=== PATIENT | female | born 1995 | race Caucasian/White ===

== ENCOUNTER 2022-04-09 06:56 | Observation (INO) ==
[2022-04-09] MEDS ORDERED: MoRPHine SULFATE 2 MG/ML CARP IV STA ×2 (07:53→10:56)
[2022-04-09] MEDS ORDERED: ACETAMINOPHEN 1,000 MG/100 ML VIAL IV STA (07:53)
[2022-04-09] MEDS: SODIUM CHLORIDE 0.9% 1000ML 1,000 ML IV SCH ×2 (08:00→16:37)
[2022-04-09] MEDS ORDERED: IOVERSOL 350 MG 100mL Prefilled Syringe IV ONE (08:35)
--- NOTE | 2022-04-09 09:11 | CT Scan Report ---
CT OF THE ABDOMEN AND PELVIS WITH CONTRAST CLINICAL HISTORY: Right-sided abdominal pain. COMPARISON STUDY: Right upper quadrant ultrasound performed earlier today. TECHNIQUE: Following IV administration of Optiray, axial images of the abdomen and pelvis were obtain ed from the lung bases to the proximal femurs. Images were reviewed in the axial, sagittal, and coron al planes. IV contrast was administered without complication. Automated exposure control was utilize d for the study. A dose lowering technique was utilized adhering to the principles of ALARA. CT DOSE: 1674.80 mGy.cm FINDINGS: Lung bases are unremarkable. No pneumatosis, free air or portal venous gas is present. Intr auterine gestation is noted with cephalic presentation. The liver, spleen, adrenal glands, left kidne y and pancreas are unremarkable. The possible hepatic abnormality on ultrasound was likely artifactua l. There is mild to moderate right hydronephrosis with delayed right nephrogram. No ureteral calculi are present. The hydronephrosis is likely due to mass effect upon the distal ureter by the gravid michael yoanna. There is no perinephric stranding. There is no evidence for a bowel obstruction. The appendix is normal. There is a 4.8 cm fat-containing left adnexal lesion. There is a 2.9 cm fat-containing right adnexal lesion. There are associated calcifications. These represent bilateral ovarian dermoid cysts . Major vasculature is patent. There is no free fluid. There is no lymphadenopathy. IMPRESSION: 1. Mild to moderate right hydronephrosis with delayed nephrogram. No ureteral calculi. This hydroneph rosis is likely due to mass effect upon the distal right ureter by the gravid uterus. 2. Normal appendix. No bowel obstruction. No bowel wall thickening. 3. Fat-containing bilateral ovarian lesions consistent with bilateral ovarian dermoid cysts. ACT 112: Negative or not required by law. Electronically signed by: Cody Evans M.D. 04/09/2022 9:10 AM
--- NOTE | 2022-04-09 10:11 | XRay Report ---
XR chest 1V portable HISTORY: . Generalized abdominal pain. Difficulty breathing. COMPARISON: None. FINDINGS: The lungs are clear. Cardiac silhouette is normal in size. No pleural effusions. No pneumot horax. IMPRESSION: No acute process. ACT 112: Negative or not required by law. Electronically signed by: Hector Espinoza M.D. 04/09/2022 10:09 AM
--- NOTE | 2022-04-09 10:46 | Emergency Department Note ---
History of Present Illness General Chief complaint: Abdominal Pain Stated complaint: ABD PAIN,32 WEEKS PREG,ALREADY SEEN IN LD Time Seen by Provider: 04/09/22 07:26 Source: patient Mode of arrival: ambulatory Limitations: no limitations History of Present Illness Provider complaint: abd pain, Maximum Pain Intensity: 4 This is a 26 yo female at 32 weeks who present with right sided abdominal pain after being evaluated upstairs in L&D. They did check labs/urine and perform abd US in addition to obstetrics evaluation. No evidence of acute obstetrical problem per Dr. Hughes. I reviewed evaluation with patient at bedside who c/o persistent pain. She denied change in urine/stool, denied fever. Stated pain woke her abruptly and is nonradiating. No prior similar episodes. No prior abdominal surgery. No complications during the so far. Pain is worse laying down. No new medications. No change in activity or trauma. Home Medications Medication Instructions Recorded Confirmed Type albuterol sulfate 90 mcg/actuation 2 puff inhalation Q6H PRN 07/01/21 04/10/22 History aerosol inhaler Shortness Of Breath Or Wheezing buspirone 5 mg tablet 10 mg PO BID 07/01/21 04/10/22 History diphenhydramine HCl 25 mg capsule 25 mg PO DIRECTED PRN ALLERGIES 07/01/21 04/10/22 History (Benadryl) duloxetine 30 mg capsule,delayed 30 mg PO DAILY 07/01/21 04/10/22 History release fexofenadine 180 mg tablet 180 mg PO DAILY PRN Congestion 10/16/21 04/10/22 History (Tamela Allergy) prenat.vits,jenise,soo-nvqq-ecgwv 1 tab PO DAILY 10/16/21 04/10/22 History magnesium oxide 500 mg tablet 500 mg PO DAILY 04/09/22 04/10/22 History Allergies Allergy/AdvReac Type Severity Reaction Status Date / Time ragweed pollen Allergy Unknown POSITIVE Verified 04/10/22 15:17 ALLERGY TEST gluten Allergy CELIAC Verified 04/10/22 15:17 DISEASE Egg Derived AdvReac Intermediate UPSET Verified 04/10/22 15:17 STOMACH Past Med/Surg History Medical History Anxiety Asthma Celiac disease Concussion COVID-19 Cyst of ovary, left Depression Fibromyalgia H pylori ulcer Surgical History History of esophagogastroduodenoscopy (EGD) 07/05/17; 01/24/20 Family History Father Hypertension Eczema Autoimmune hepatitis Arthritis Mother Hypertension Unknown Breast cancer Denies family history of Ovarian cancer Lung cancer Colorectal cancer Social History Smoking Status: Never smoker Second Hand Exposure: No; Hx Alcohol Use: No Hx Substance Use: No Preferred Language: Upper Sorbian Communication Ability: Effective Gaming Associate Required: No Beliefs That Will Affect Care: None marital status: Single marital status details: Engaged to Cody Garcia ([phone] Current Living Situation: Significant Other Current Living Situation Comment: FOB and cats (fob changing litter) current occupational status: employed current occupation: [employer] Feels Safe at Home: Yes Assistive Devices: None Review of Systems A total of 10 systems reviewed and were otherwise negative All systems reviewed & are unremarkable except as noted in HPI & below Physical Exam Vital Signs Vital Signs - 24 hr 04/09/22 07:01 04/09/22 07:20 04/09/22 08:00 Temperature 36.4 C L 37.3 C Temperature Source Temporal Artery Scan Oral Pulse Rate 142 H Pulse Rate [Finger] 120 H 122 H Pulse Rhythm [Finger] Regular Regular Pulse Strength [Finger] Normal Normal Respiratory Rate 20 22 22 Respiratory Effort / Characteristics Non-Labored Non-Labored Respiratory Depth Normal Normal Normal Respiratory Pattern Regular Blood Pressure 110/67 Blood Pressure [Left Arm] 131/98 129/85 Blood Pressure Mean 81 Blood Pressure Mean [Left Arm] 109 99 Blood Pressure Position [Left Arm] Lying Lying Pulse Oximetry 96 96 97 Oxygen Delivery Method Room Air Room Air Room Air Sepsis Recent Fever Within 48 Hours No Sepsis New/Unexplained Change in Mental Status N/A Sepsis Action Taken by Nursing No Action Required 04/09/22 10:00 04/09/22 11:00 Temperature Temperature Source Pulse Rate Pulse Rate [Finger] 116 H 105 H Pulse Rhythm [Finger] Pulse Strength [Finger] Normal Normal Respiratory Rate 18 18 Respiratory Effort / Characteristics Non-Labored Non-Labored Respiratory Depth Normal Normal Respiratory Pattern Regular Regular Blood Pressure Blood Pressure [Left Arm] 148/78 H Blood Pressure Mean Blood Pressure Mean [Left Arm] 101 Blood Pressure Position [Left Arm] Lying Pulse Oximetry 96 96 Oxygen Delivery Method Room Air Room Air Sepsis Recent Fever Within 48 Hours Sepsis New/Unexplained Change in Mental Status Sepsis Action Taken by Nursing GENERAL: alert, well appearing, well nourished, no distress, non-toxic EYE EXAM: normal conjunctiva, PERRL and EOM's grossly intact OROPHARYNX: no exudate, no erythema, lips, buccal mucosa, and tongue normal and mucous membranes are moist NECK: supple, no nuchal rigidity, no adenopathy, non-tender LUNGS: Clear to auscultation. Normal chest wall mechanics, no w/r/r HEART: no murmurs, S1 normal and S2 normal ABDOMEN: abdomen soft, tender to palpation right mid lateral abdomen, normo- active bowel sounds, gravid uterus palpable btw umbilicus and xiphoid process, no rebound or guarding. BACK: Back is symmetrical on inspection and there is no deformity, no midline tenderness, no CVA tenderness. SKIN: no rashes and no bruising UPPER EXTREMITIES: upper extremities are grossly normal. FROM, nml pulses b/l. LOWER EXTREMITIES: No pitting edema. FROM, nml pulses b/l. NEURO EXAM: Normal sensorium, cranial nerves II-XII grossly intact, normal speech, no gross weakness of arms, no gross weakness of legs. Gross sensation intact. Course Course 1050: Discussed with Dr. Licea. 1245: Updated Dr. Licea. 1325: Dr. Licea now at bedside. Administered Medications Discontinued Medications Buspirone HCl (Buspirone 5 Mg Tab) 10 mg PO BID [facility] Stop: 05/10/22 08:59 Last Admin: 04/10/22 07:45 Dose: 10 mg Documented By: Admin: 04/09/22 23:37 Dose: 10 mg Documented By: LANE Duloxetine HCl (Duloxetine Hcl 30 Mg Cap) 30 mg PO DAILY MARITA Stop: 05/10/22 08:59 Last Admin: 04/10/22 07:44 Dose: 30 mg Documented By: STERLING Sodium Chloride (Nss 1000ml) 1,000 mls @ 125 mls/hr IV .Q8H [facility] Stop: 05/09/22 07:59 Last Admin: 04/09/22 16:37 Dose: Not Given Documented By: Admin: 04/09/22 08:00 Dose: 125 mls/hr Documented By: TRAVON Acetaminophen (Ofirmev) 1,000 mg in 100 mls @ 400 mls/hr IV NOW STA Stop: 04/09/22 08:07 Last Infusion: 04/09/22 08:12 Dose: 0 mls/hr Documented By: Admin: 04/09/22 07:59 Dose: 400 mls/hr Documented By: TRAVON Lactated Ringer's (Lr) 1,000 mls @ 125 mls/hr IV .Q8H PRN; Protocol PRN Reason: L&D Protocol Stop: 05/09/22 15:54 Last Infusion: 04/10/22 01:30 Dose: 0 mls/hr Documented By: AMPavel Infusion: 04/10/22 00:31 Dose: 125 mls/hr Documented By: Infusion: 04/09/22 21:00 Dose: 0 mls/hr Documented By: AMPavel Admin: 04/09/22 16:43 Dose: 125 mls/hr Documented By: ERIN Acetaminophen 1,000 mg/ EMPTY (BAG) 100 mls @ 400 mls/hr IV Q8H MARITA Stop: 05/09/22 15:59 Last Admin: 04/10/22 07:45 Dose: 400 mls/hr Documented By: Infusion: 04/10/22 00:45 Dose: 400 mls/hr Documented By: Admin: 04/10/22 00:30 Dose: 400 mls/hr Documented By: Infusion: 04/09/22 17:21 Dose: 0 mls/hr Documented By: Admin: 04/09/22 17:06 Dose: 400 mls/hr Documented By: ERIN Ioversol (Ioversol 350 Mg 100ml Prefilled Syringe) 95 ml IV ONCE ONE Stop: 04/09/22 08:36 Last Admin: 04/09/22 08:36 Dose: 95 ml Documented By: EVELYN Morphine Sulfate (Morphine Sulfate 2 Mg/Ml Carp) 2 mg IV NOW STA Stop: 04/09/22 07:54 Last Admin: 04/09/22 08:00 Dose: 2 mg Documented By: TRAVON Morphine Sulfate (Morphine Sulfate 2 Mg/Ml Carp) 2 mg IV NOW STA Stop: 04/09/22 10:57 Last Admin: 04/09/22 11:02 Dose: 2 mg Documented By: [facility] Medical Decision Making Differential Diagnosis Differential diagnoses includes but is not limited to gastritis, peptic ulcer disease, GERD, gallbladder disease, pancreatitis, small bowel obstruction, acute coronary syndrome, pericarditis, ischemic bowel, irritable bowel disease, irritable bowel syndrome, appendicitis, diverticulitis, malignancy, hernia, urinary tract infection, torsion, [/ectopic (if female)], perforation, trauma, infectious. Medical Records Attestation: I reviewed the patient's medical records. Home Medications Current Medication List: was personally reviewed by me Laboratory Data Attestation: I reviewed the patient's lab results. Result diagrams: 04/10/22 05:55 04/10/22 05:55 Lab Results 04/09/22 04/09/22 04/09/22 Range/Units 11:32 11:32 12:30 WBC 15.92 H (4.8-10.8) K/ul RBC 4.16 (3.93-5.22) M/uL Hgb 11.9 L (12.0-16.0) g/dl Hct 34.7 (34.1-44.9) % MCV 83.4 (80.0-100.0) fL MCH 28.6 (25.0-34.0) pg MCHC 34.3 (32.0-36.0) g/dL RDW Std Deviation 37.8 (36.4-46.3) fL RDW Coeff of Roberth 12.5 (11.5-14.5) % Plt Count 261 (130-400) K/uL MPV 9.8 (9.4-12.3) fL Immature Gran % (Auto) 0.4 % Neut % (Auto) 82.1 % Lymph % (Auto) 8.6 % [place] % (Auto) 7.9 % Eos % (Auto) 0.8 % Baso % (Auto) 0.2 % Neut # (Auto) 13.09 H (1.4-6.5) K/uL Lymph # (Auto) 1.37 (1.2-3.4) K/uL [place] # (Auto) 1.25 H (0.24-0.82) K/uL Eos # (Auto) 0.12 (0-0.50) K/uL Baso # (Auto) 0.03 (0-0.2) K/uL Immature Gran # (Auto) 0.06 H (0.00-0.02) K/uL Sodium 135 L (136-145) mmol/L Potassium 3.8 (3.5-5.1) mmol/L Chloride 105 (98-107) mmol/L Carbon Dioxide 23 (21-32) mmol/L Anion Gap 7 (3-11) BUN 4 L (6-23) mg/dl Creatinine 0.57 L (0.6-1.2) mg/dl Est Cr Clr Drug Dosing 189.8 ml/min Est GFR ( Amer) > 150.0 ml/min Est GFR (Non-Af Amer) 129.8 ml/min BUN/Creatinine Ratio 7.0 L (10-20) Glucose 92 (70-99(Fasting)) mg/dl Calcium 8.6 (8.5-10.1) mg/dl Total Bilirubin 0.4 (0.2-1.0) mg/dl AST 11 L (13-39) U/L ALT 7 (7-52) U/L Alkaline Phosphatase 83 (34-104) U/L Total Protein 6.2 (6.0-8.3) gm/dl Albumin 3.1 L (3.4-5.0) gm/dl Globulin 3.1 (2.5-4.0) gm/dl Albumin/Globulin Ratio 1.0 (0.9-2) Lipase 9 L (11-82) U/L Urine Color Yellow Urine Appearance Cloudy A (Clear) Urine pH 7.5 (4.5-7.5) Ur Specific [place] > 1.045 H (1.000-1.030) Urine Protein Negative (Negative) Urine Glucose (UA) Negative (Negative) Urine Ketones 1+ H (Negative) Urine Blood Negative (Negative) Urine Nitrite Negative (Negative) Urine Bilirubin Negative (Negative) Urine Urobilinogen Negative (Negative) Ur Leukocyte Esterase Negative (Negative) Urine WBC (Auto) 1-5 (0-5) /hpf Urine RBC (Auto) 0-4 (0-4) /hpf U Hyaline Cast (Auto) 1-5 (0-5) /lpf U Epithel Cells (Auto) >30 H (0-5) /lpf Urine Bacteria (Auto) 1+ H (Negative) SARS-CoV-2, RNA, NAAT (NEGATIVE) 04/09/22 Range/Units 14:25 WBC (4.8-10.8) K/ul RBC (3.93-5.22) M/uL Hgb (12.0-16.0) g/dl Hct (34.1-44.9) % MCV (80.0-100.0) fL MCH (25.0-34.0) pg MCHC (32.0-36.0) g/dL RDW Std Deviation (36.4-46.3) fL RDW Coeff of Roberth (11.5-14.5) % Plt Count (130-400) K/uL MPV (9.4-12.3) fL Immature Gran % (Auto) % Neut % (Auto) % Lymph % (Auto) % [place] % (Auto) % Eos % (Auto) % Baso % (Auto) % Neut # (Auto) (1.4-6.5) K/uL Lymph # (Auto) (1.2-3.4) K/uL [place] # (Auto) (0.24-0.82) K/uL Eos # (Auto) (0-0.50) K/uL Baso # (Auto) (0-0.2) K/uL Immature Gran # (Auto) (0.00-0.02) K/uL Sodium (136-145) mmol/L Potassium (3.5-5.1) mmol/L Chloride (98-107) mmol/L Carbon Dioxide (21-32) mmol/L Anion Gap (3-11) BUN (6-23) mg/dl Creatinine (0.6-1.2) mg/dl Est Cr Clr Drug Dosing ml/min Est GFR ( Amer) ml/min Est GFR (Non-Af Amer) ml/min BUN/Creatinine Ratio (10-20) Glucose (70-99(Fasting)) mg/dl Calcium (8.5-10.1) mg/dl Total Bilirubin (0.2-1.0) mg/dl AST (13-39) U/L ALT (7-52) U/L Alkaline Phosphatase (34-104) U/L Total Protein (6.0-8.3) gm/dl Albumin (3.4-5.0) gm/dl Globulin (2.5-4.0) gm/dl Albumin/Globulin Ratio (0.9-2) Lipase (11-82) U/L Urine Color Urine Appearance (Clear) Urine pH (4.5-7.5) Ur Specific [place] (1.000-1.030) Urine Protein (Negative) Urine Glucose (UA) (Negative) Urine Ketones (Negative) Urine Blood (Negative) Urine Nitrite (Negative) Urine Bilirubin (Negative) Urine Urobilinogen (Negative) Ur Leukocyte Esterase (Negative) Urine WBC (Auto) (0-5) /hpf Urine RBC (Auto) (0-4) /hpf U Hyaline Cast (Auto) (0-5) /lpf U Epithel Cells (Auto) (0-5) /lpf Urine Bacteria (Auto) (Negative) SARS-CoV-2, RNA, NAAT NEGATIVE (NEGATIVE) Imaging Data Radiologist's Impression: Abdomen/Pelvis CT 04/09/22 08:09 CT OF THE ABDOMEN AND PELVIS WITH CONTRAST CLINICAL HISTORY: Right-sided abdominal pain. COMPARISON STUDY: Right upper quadrant ultrasound performed earlier today. TECHNIQUE: Following IV administration of Optiray, axial images of the abdomen and pelvis were obtained from the lung bases to the proximal femurs. Images were reviewed in the axial, sagittal, and coronal planes. IV contrast was administered without complication. Automated exposure control was utilized for the study. A dose lowering technique was utilized adhering to the principles of ALARA. CT DOSE: 1674.80 mGy.cm FINDINGS: Lung bases are unremarkable. No pneumatosis, free air or portal venous gas is present. Intrauterine gestation is noted with cephalic presentation. The liver, spleen, adrenal glands, left kidney and pancreas are unremarkable. The possible hepatic abnormality on ultrasound was likely artifactual. There is mild to moderate right hydronephrosis with delayed right nephrogram. No ureteral calculi are present. The hydronephrosis is likely due to mass effect upon the distal ureter by the gravid uterus. There is no perinephric stranding. There is no evidence for a bowel obstruction. The appendix is normal. There is a 4.8 cm fat-containing left adnexal lesion. There is a 2.9 cm fat-containing right adn exal lesion. There are associated calcifications. These represent bilateral ovarian dermoid cysts. Major vasculature is patent. There is no free fluid. There is no lymphadenopathy. IMPRESSION: 1. Mild to moderate right hydronephrosis with delayed nephrogram. No ureteral calculi. This hydronephrosis is likely due to mass effect upon the distal right ureter by the gravid uterus. 2. Normal appendix. No bowel obstruction. No bowel wall thickening. 3. Fat-containing bilateral ovarian lesions consistent with bilateral ovarian dermoid cysts. ACT 112: Negative or not required by law. Electronically signed by: Cody Evans M.D. 04/09/2022 9:10 AM Chest X-Ray 04/09/22 09:52 XR chest 1V portable HISTORY: . Generalized abdominal pain. Difficulty breathing. COMPARISON: None. FINDINGS: The lungs are clear. Cardiac silhouette is normal in size. No pleural effusions. No pneumothorax. IMPRESSION: No acute process. ACT 112: Negative or not required by law. Electronically signed by: Hector Espinoza M.D. 04/09/2022 10:09 AM MDM Narrative An order was placed for continuous cardiac monitoring. The monitor shows a rate of _112_ with _sinus tachycardia_ rhythm. This is a 26 yo female with right abdominal pain in the setting of . Patient evaluated by production gear cutter first and then sent to the ER. After discussion w ith the patient, radiology, and production gear cutter, decision made to pursue CT a/p. This was negative. CXR also reassuring. Discussed with production gear cutter again who requested repeat labs which were unchanged. Patient given multiple doses of pain medication and was hydrated. Dr. Licea did come evaluate the patient in the ER and requested additional US imaging. Patient admitted to production gear cutter service for observation. Impression & Plan Abdominal pain, Discharge Plan Visit Data Chief Complaint: Abdominal Pain Stated Complaint: ABD PAIN,32 WEEKS PREG,ALREADY SEEN IN LD ED Provider: Bernadette More Discharge Problem: Abdominal pain, Patient Disposition: Home - Self-Care Discharge Instructions Interventions: ED Discharge Assessment Last Done: 04/09/22 15:37
[2022-04-09 12:01] LABS: Basophils # (auto) 0.03 K/uL (0-0.2); Basophils % (auto) 0.2 %; Eosinophils # (auto) 0.12 K/uL (0-0.50); Eosinophils % (auto) 0.8 %; Hematocrit (blood only) 34.7 % (34.1-44.9); Hemoglobin 11.9 g/dl (12.0-16.0); Immature Granulocytes # (auto) 0.06 K/uL (0.00-0.02); Immature Granulocytes % (auto) 0.4 %; Lymphocytes # (auto) 1.37 K/uL (1.2-3.4); Lymphocytes % (auto) 8.6 %; Mean Corpuscular Hemoglobin 28.6 pg (25.0-34.0); Mean Corpuscular Hgb Conc 34.3 g/dL (32.0-36.0); Mean Corpuscular Volume 83.4 fL (80.0-100.0); Mean Platelet Volume 9.8 fL (9.4-12.3); Monocytes # (auto) 1.25 K/uL (0.24-0.82); Monocytes % (auto) 7.9 %; Neutrophils # (auto) 13.09 K/uL (1.4-6.5); Neutrophils % (auto) 82.1 %; Platelet Count 261 K/uL (130-400); RDW Coefficient of Variation 12.5 % (11.5-14.5); RDW Standard Deviation 37.8 fL (36.4-46.3); Red Blood Count 4.16 M/uL (3.93-5.22); White Blood Count 15.92 K/ul (4.8-10.8)
[2022-04-09 12:39] LABS: Alanine Aminotransferase 7 U/L (7-52); Albumin Level 3.1 gm/dl (3.4-5.0); Alkaline Phosphatase 83 U/L (34-104); Anion Gap 7 (3-11); Aspartate Aminotransferase 11 U/L (13-39); Bilirubin,Total 0.4 mg/dl (0.2-1.0); Blood Urea Nitrogen 4 mg/dl (6-23); Calcium 8.6 mg/dl (8.5-10.1); Carbon Dioxide 23 mmol/L (21-32); Chloride 105 mmol/L (98-107); Creatinine Clr Calc Pharmacy 189.8 ml/min; Est GFR (African American) > 150.0 ml/min; Est GFR (Non-African American) 129.8 ml/min; Globulin 3.1 gm/dl (2.5-4.0); Glucose 92 mg/dl (70-99(Fasting)); Lipase 9 U/L (11-82); Potassium 3.8 mmol/L (3.5-5.1); Sodium 135 mmol/L (136-145); Total Protein 6.2 gm/dl (6.0-8.3)
[2022-04-09 12:51] LABS: Appearance Urine Cloudy (Clear); Bacteria Urine Automated 1+ (Negative); Bilirubin Urine Negative (Negative); Blood Urine Negative (Negative); Color Urine Yellow; Epithelial Cell Urine Auto >30 /lpf (0-5); Glucose Urine UA Negative (Negative); Ketones Urine 1+ (Negative); Leukocyte Esterase Urine Negative (Negative); Nitrite Urine Negative (Negative); Protein Urine Negative (Negative); RBC Urine Automated 0-4 /hpf (0-4); Specific Gravity Urine > 1.045 (1.000-1.030); Urobilinogen Urine Negative (Negative); pH Urine 7.5 (4.5-7.5)
--- NOTE | 2022-04-09 15:07 | Ultrasound Report ---
US pelvic limited CLINICAL HISTORY: Pelvic pain. Evaluate ovaries. COMPARISON STUDY: CT of the abdomen and pelvis April 09, 2022. TECHNIQUE: Transabdominal sonography of the pelvis was performed. FINDINGS: The ovaries were not visualized by sonography. The bilateral dermoid cysts shown on CT were not evident by sonography. Intrauterine gestation is incidentally noted. heart rate is normal at 135 bpm. Please note that a ultrasound was not performed. Mild right hydronephrosis is again noted. IMPRESSION: Nonvisualization of the ovaries. The bilateral dermoid cysts shown on CT are not evident by sonograph y. ACT 112: Negative or not required by law. Electronically signed by: Cody Evans M.D. 04/09/2022 3:06 PM
[2022-04-09] MEDS ORDERED: LACTATED RINGER'S 1,000 ML IV PRN (15:55)
[2022-04-09] MEDS: ACETAMINOPHEN 10MG/ML Custom 1,000 MG in EMPTY BAG 0 ML IV SCH (17:06)
--- NOTE | 2022-04-09 18:29 | Obstetrical Progress Note ---
Date of Service April 09, 2022 Assessment & Plan (1) Right upper quadrant abdominal pain affecting : Plan Patient is a 26-year-old nulliparous patient who presents at 32 weeks with diffuse abdominal pain. So far her labs have continued to be stable and we will continue to watch serial CBCs and metabolic panels. we will also monitor her temperature and vital signs. There does not seem to be an obstetrical source for her pain and I suspect that this may be a muscular strain brought on by a change in position earlier this evening. The dermoid cysts cannot be reproduced on the follow up abdominal ultrasound so I question whether they are actually present. I do not think her pain is because of ovarian torsion or an acute peritoneal process since her white count and metabolic panel labs have been stable. She now states that she feels hungry and She has been able to keep down Jell-O and is now resting comfortably feeling her pain is getting better. She received a total of 2 doses of IV Tylenol over the past 12 hours. She also received 2 doses of morphine over the first 8 hours in the emergency room. She has not requested anything other than the Tylenol since coming to labor and delivery. Overall I think the process causing the pain is resolving and saravia spicious for a muscular-skeletal etiology but we will recheck labs at 2000 tonight & continue to monitor closely.. Admission and Anticipated Discharge Date Admission Date: April 09, 2022 Subjective Patient is a 26-year-old G1, P0 who presents at 32 weeks with the history of sudden onset of right-sided abdominal pain. It began when she attempted to get up off the couch last evening. The pain was sharp and seem to radiate to the suprapubic area. It started lateral to the umbilicus but did travel into the right upper quadrant and again down to the lower pelvis. She denied any vaginal bleeding leaking fluid or change in discharge. There continued to be normal movement. She denies any cramping or contraction-like pain. There was a vague crampiness in her suprapubic area but it was the sharp pain that she was most concerned about. She was initially evaluated in the labor and delivery to rule out labor and possibly preeclampsia. Labs and monitoring in labor and delivery were all reassuring. She was then sent to the emergency room for further evaluation for this pain. Abdominal ultrasound revealed right mild hydronephrosis consistent with a gravid uterus. There is no gallbladder stones or wall thickening. CT CAT scan of the abdomen was then performed which revealed a normal appendix. And no evidence of renal calculi. There appeared possibility of bilateral dermoid cyst the left 1 appearing to contain fat and measuring 5 cm. The right ovary appeared to have a 2.9 cm dermoid also containing fat. Because of the presence of the dermoid cysts, the question of possible ovarian torsion was entertained. An ultrasound of the area that was painful was performed at the ovaries could not be visualized and the presence of the bilateral dermoid cyst was then in question. She had follow-up blood work and her white count is mildly elevated but remains essentially the same without any increase in shift. Liver enzyme also appeared to be the same and normal. She was transferred to labor and delivery for further monitoring and serial labs . She notes that she still having the pain it is sharp in nature and again appears to be in the same area on the right lateral portion of the abdominal wall. Shortly after she was transferred to labor and delivery she noticed that she had pain in her left upper quadrant there was also pain in her right lower quadrant as well. The right lower quadrant pain was sharp but the left upper quadrant pain is more of a vague crampy sensation. The pain does seem to be aggravated by movement. She cannot recall whether the pain is worsened while she had the monitors on during her initial evaluation. She denies any nausea or vomiting however she had 1 episode of nausea during a more painful episode in the emergency room. There is no diarrhea no frequency of urination no dysuria, hematuria or urgency and no flank or back pain. Of note she has a history of celiac disease. Review of Systems Review of Systems: All systems reviewed & are unremarkable except as noted in HPI & below Physical Exam Constitutional: WD/WN, vitals as above Gastrointestinal (Abdomen): Reexamination of the abdomen reveals tenderness along the right side of the uterus lateral to the umbilicus and along the fundal portion of the uterus. Uterus is soft and there is no guarding or rebound present. There are no masses palpable. Right upper quadrant is nontender. no CVAT Psychiatric: A+Ox3, euthymic affect Genitourinary: Manual OB Exam: + cervical dilation (closed), + cervical effacement (thick) and + station high OB Exam Monitor Tracing: + external FHT monitor used, + external uterine monitor used and + category I Cervical exam per Dr. Hughes on initial assessment. Results & Data ([facility]) Vital Signs (Past 12 Hours) Vital Signs Temp Pulse Pulse Resp BP BP Pulse Ox 04/09/22 16:09 98.6 F 116 H 20 123/70 04/09/22 15:36 116 H 19 114/86 96 04/09/22 11:00 105 H 18 148/78 H 96 04/09/22 10:00 116 H 18 96 04/09/22 08:00 122 H 22 129/85 97 04/09/22 07:20 99.1 F 120 H 22 131/98 96 04/09/22 07:01 97.5 F L 142 H 20 110/67 96 O2 Del Method 04/09/22 16:09 04/09/22 15:36 Room Air 04/09/22 11:00 Room Air 04/09/22 10:00 Room Air 04/09/22 08:00 Room Air 04/09/22 07:20 Room Air 04/09/22 07:01 Room Air PG Care Time/CCT Total # of Minutes Spent Total Time Spent with Patient: Total time spent is greater than 50% in coordination of care (as documented) at patient's floor/unit and/or counseling patient: Coding Level of Care Code 95975 Subseq Hosp Care Lvl 3 Diagnoses Right upper quadrant abdominal pain affecting O26.899; R10.11
[2022-04-09 20:43] LABS: Basophils # (auto) 0.03 K/uL (0-0.2); Basophils % (auto) 0.2 %; Eosinophils % (auto) 1.5 %; Hematocrit (blood only) 38.9 % (34.1-44.9); Hemoglobin 12.9 g/dl (12.0-16.0); Immature Granulocytes # (auto) 0.07 K/uL (0.00-0.02); Immature Granulocytes % (auto) 0.5 %; Lymphocytes # (auto) 1.55 K/uL (1.2-3.4); Lymphocytes % (auto) 11.8 %; Mean Corpuscular Hemoglobin 28.8 pg (25.0-34.0); Mean Corpuscular Hgb Conc 33.2 g/dL (32.0-36.0); Mean Corpuscular Volume 86.8 fL (80.0-100.0); Mean Platelet Volume 9.6 fL (9.4-12.3); Monocytes # (auto) 1.35 K/uL (0.24-0.82); Monocytes % (auto) 10.2 %; Neutrophils # (auto) 9.98 K/uL (1.4-6.5); Neutrophils % (auto) 75.8 %; Platelet Count 259 K/uL (130-400); RDW Coefficient of Variation 12.5 % (11.5-14.5); RDW Standard Deviation 39.7 fL (36.4-46.3); Red Blood Count 4.48 M/uL (3.93-5.22); White Blood Count 13.18 K/ul (4.8-10.8)
[2022-04-09 21:05] LABS: Alanine Aminotransferase 8 U/L (7-52); Albumin Globulin Ratio 1.1 (0.9-2); Albumin Level 3.6 gm/dl (3.4-5.0); Alkaline Phosphatase 94 U/L (34-104); Anion Gap 9 (3-11); Aspartate Aminotransferase 14 U/L (13-39); BUN Creatinine Ratio 8.9 (10-20); Bilirubin,Total 0.5 mg/dl (0.2-1.0); Blood Urea Nitrogen 5 mg/dl (6-23); Calcium 8.9 mg/dl (8.5-10.1); Carbon Dioxide 22 mmol/L (21-32); Chloride 104 mmol/L (98-107); Creatinine Clr Calc Pharmacy 193.2 ml/min; Est GFR (African American) > 150.0 ml/min; Est GFR (Non-African American) 130.5 ml/min; Globulin 3.3 gm/dl (2.5-4.0); Glucose 71 mg/dl (70-99(Fasting)); Potassium 3.6 mmol/L (3.5-5.1); Sodium 135 mmol/L (136-145); Total Protein 6.9 gm/dl (6.0-8.3)
[2022-04-09] MEDS: busPIRone 5 MG TAB PO SCH ×2 (23:13→23:37)
[2022-04-10] MEDS: ACETAMINOPHEN 10MG/ML Custom 1,000 MG in EMPTY BAG 0 ML IV SCH ×2 (00:30→07:45)
[2022-04-10 06:11] LABS: Basophils # (auto) 0.03 K/uL (0-0.2); Basophils % (auto) 0.3 %; Eosinophils # (auto) 0.27 K/uL (0-0.50); Hematocrit (blood only) 35.1 % (34.1-44.9); Hemoglobin 12.2 g/dl (12.0-16.0); Immature Granulocytes # (auto) 0.03 K/uL (0.00-0.02); Immature Granulocytes % (auto) 0.3 %; Lymphocytes # (auto) 1.42 K/uL (1.2-3.4); Lymphocytes % (auto) 15.7 %; Mean Corpuscular Hemoglobin 29.5 pg (25.0-34.0); Mean Corpuscular Hgb Conc 34.8 g/dL (32.0-36.0); Mean Platelet Volume 9.6 fL (9.4-12.3); Monocytes # (auto) 0.73 K/uL (0.24-0.82); Monocytes % (auto) 8.1 %; Neutrophils # (auto) 6.56 K/uL (1.4-6.5); Neutrophils % (auto) 72.6 %; Platelet Count 247 K/uL (130-400); RDW Coefficient of Variation 12.7 % (11.5-14.5); RDW Standard Deviation 38.2 fL (36.4-46.3); Red Blood Count 4.13 M/uL (3.93-5.22); White Blood Count 9.04 K/ul (4.8-10.8)
[2022-04-10 06:38] LABS: Alanine Aminotransferase 7 U/L (7-52); Albumin Globulin Ratio 1.1 (0.9-2); Albumin Level 3.2 gm/dl (3.4-5.0); Alkaline Phosphatase 82 U/L (34-104); Anion Gap 8 (3-11); Aspartate Aminotransferase 12 U/L (13-39); BUN Creatinine Ratio 9.6 (10-20); Bilirubin,Total 0.4 mg/dl (0.2-1.0); Blood Urea Nitrogen 5 mg/dl (6-23); Calcium 8.5 mg/dl (8.5-10.1); Carbon Dioxide 22 mmol/L (21-32); Chloride 104 mmol/L (98-107); Est GFR (African American) > 150.0 ml/min; Est GFR (Non-African American) 133.7 ml/min; Globulin 2.9 gm/dl (2.5-4.0); Glucose 89 mg/dl (70-99(Fasting)); Potassium 3.7 mmol/L (3.5-5.1); Sodium 134 mmol/L (136-145); Total Protein 6.1 gm/dl (6.0-8.3)
[2022-04-10] MEDS: busPIRone 5 MG TAB PO SCH (07:45)
--- NOTE | 2022-04-10 08:59 | Obstetrical Progress Note ---
Date of Service April 10, 2022 Assessment & Plan (1) Right upper quadrant abdominal pain affecting : Plan: pain has improved and blood work has normalized she has an appt this afternoon for a growth scan at the office and she will point out the area that is painful so it can be reassessed again. I still suspect this is muscular strain and will start wearing the abdominal support she has at home. Admission and Anticipated Discharge Date Admission Date: April 09, 2022 Subjective Patient feeling better this morning and was able to eat a regular diet. now has discomfort in the LUQ and still a little sore on her right side lateral to the umbilicus. Review of Systems Review of Systems: All systems reviewed & are unremarkable except as noted in HPI & below Physical Exam Constitutional: WD/WN, vitals as above Gastrointestinal (Abdomen): abdomen mildly tender lateral to umbilicus on the right. no rebound or guarding. Psychiatric: A+Ox3, euthymic affect Results & Data ([facility]) Vital Signs (Past 12 Hours) Vital Signs Temp Pulse Resp BP 04/10/22 07:42 97.5 F L 107 H 22 117/68 04/10/22 00:15 111 H 120/73 PG Care Time/CCT Total # of Minutes Spent Total Time Spent with Patient: Total time spent is greater than 50% in coordination of care (as documented) at patient's floor/unit and/or counseling patient: Coding Level of Care Code 38205 Subseq Hosp Care Lvl 2 Diagnoses Right upper quadrant abdominal pain affecting O26.899; R10.11
[2022-04-10] MEDS ORDERED: DULoxetine HCL 30 MG CAP PO SCH (09:00)
== END 2022-04-10 08:45 | disposition home or self-care (01) ==
LOC: ED 06:56 → 4S1 06:56 → ED 15:37
DX: R10.11 Right upper quadrant pain; Z86.16 Personal history of COVID-19; Z3A.32 32 weeks gestation of pregnancy; M25.511 Pain in right shoulder; O26.893 Other specified pregnancy related conditions, third trimester; Z79.899 Other long term (current) drug therapy; Z91.012 Allergy to eggs; Z91.048 Other nonmedicinal substance allergy status

== ENCOUNTER 2022-05-28 06:25 | Inpatient (IN) ==
[2022-05-28] MEDS ORDERED: PENICILLIN G POTASSIUM 6 MU in DEXTROSE 5% 250 ML IV STA (06:57)
[2022-05-28] MEDS ORDERED: OXYTOCIN 30 UNITS/500 ML BAG IV PRN ×3 (06:57→14:46)
[2022-05-28] MEDS ORDERED: LIDOCAINE 1% LOCAL 20 ML VIAL INFIL PRN (06:57)
--- NOTE | 2022-05-28 07:00 | History & Physical Report ---
Date of Service May 28, 2022 Assessment & Plan (1) Carrier of group B Streptococcus: (2) SROM (spontaneous rupture of membranes): (3) with 39 completed weeks gestation: Plan admit. pcn for gbs. fetus category one. discussed expectant management vs. starting aumentation now. Agreeable to pitocin. anticipate . History of Present Illness Chief Complaint: srom Primary Care Provider: Sergio Christianson MD Patient is a 26yowf with iup at39 1/7 weeks who presents to labor and delivey complaining of gush of clear fluid around 4am. continues to have small gushes. +fm. no vb. and Delivery Plans Obesity (BMI 40 and higher @ beginning of ) *Growth US @ 32wks *Weekly NSTs @ 34wks *[place]atomy [place] w/ [facility] patient request [place] [facility] [place] choroid plexus cyst, needing f/u for missed anatomy continued missed anatomy and having growth and f/u at [facility] [place] GBS Positive *Treat in labor COVID Pfizer vaccine *02/25/21 *03/18/21 depression/anxiety--on cymbalta/buspirone RH negative Rhogam given 03/13/22- MK Flu vaccine given 03/13/22- MK OB Labs: Blood Type A Negative 04/09/22 E Antibody Screen POSITIVE A 04/09/22 Hemoglobin 12.2 g/dl (12.0-16.0) 04/10/22 Hematocrit 35.1 % (34.1-44.9) 04/10/22 Mean Corpuscular Volume 85.0 fL (80.0-100.0) 04/10/22 Platelet Count 247 K/uL (130-400) 04/10/22 Rubella IgG Antibody Immune (Immune) 10/23/21 Rapid Plasma Reagin Nonreactive (Nonreactive) 10/23/21 Hepatitis B Surface Antigen. NON-REACTIVE (NON-REACTIVE) 10/23/21 Hepatitis C Antibody (EIA) NON-REACTIVE (NON-REACTIVE) 10/23/21 HIV (1&2) Ag and Ab Confirmation NON-REACTIVE (NON-REACTIVE) 10/23/21 Glucose 1 Hour 50 gm Load 99 mg/dl (70-130) 03/13/22 OB Optional Labs: Chlamydia trachomatis RNA NOT DETECTED (NOT DETECTED) 10/23/21 Neisseria gonorrhoeae RNA NOT DETECTED (NOT DETECTED) 10/23/21 Labs Reviewed: Declines cf/sma--mln Declines cfdna--mln Declines msafp--mln gbs positive 10/23/21 Hep B non reactive Hep C non reactive HIV non reactive Allergies Allergy/AdvReac Type Severity Reaction Status Date / Time ragweed pollen Allergy Unknown POSITIVE Verified 05/15/22 08:41 ALLERGY TEST gluten Allergy CELIAC Verified 05/15/22 08:41 DISEASE Egg Derived AdvReac Intermediate UPSET Verified 05/15/22 08:41 STOMACH Home Medications Medication Instructions Recorded Confirmed Type albuterol sulfate 90 mcg/actuation 2 puff inhalation Q6H PRN 07/01/21 05/20/22 History aerosol inhaler Shortness Of Breath Or Wheezing buspirone 5 mg tablet 10 mg PO BID 07/01/21 05/20/22 History diphenhydramine HCl 25 mg capsule 25 mg PO DIRECTED PRN ALLERGIES 07/01/21 05/20/22 History (Benadryl) duloxetine 30 mg capsule,delayed 30 mg PO DAILY 07/01/21 05/20/22 History release fexofenadine 180 mg tablet 180 mg PO DAILY PRN Congestion 10/16/21 05/20/22 History (Tamela Allergy) prenat.vits,jenise,jat-uqsr-kgpko 1 tab PO DAILY 10/16/21 05/20/22 History magnesium oxide 500 mg tablet 500 mg PO DAILY 04/09/22 05/20/22 History Patient History Medical History Anxiety Asthma Celiac disease Concussion COVID-19 Cyst of ovary, left Depression Fibromyalgia H pylori ulcer Surgical History History of esophagogastroduodenoscopy (EGD) 07/05/17; 01/24/20 Family History Father Hypertension Eczema Autoimmune hepatitis Arthritis Mother Hypertension Unknown Breast cancer Denies family history of Ovarian cancer Lung cancer Colorectal cancer Social History Smoking Status: Never smoker Second Hand Exposure: No; Hx Alcohol Use: No Hx Substance Use: No Preferred Language: Welsh Communication Ability: Effective Cash Surrender Calculator Required: No Beliefs That Will Affect Care: None marital status: Single marital status details: Engaged to Cody Garcia (25) [phone] Current Living Situation: Significant Other Current Living Situation Comment: FOB and cats (fob changing litter) current occupational status: employed current occupation: [employer] Feels Safe at Home: Yes Assistive Devices: None OB History g1--current [employer] History noncontributory Physical Exam Constitutional: WD/WN, vitals as above Gastrointestinal (Abdomen): soft, gravid, nt, obese, Psychiatric: A+Ox3, euthymic affect Genitourinary: sse--large amount of fluid sve--2/90/-2 toco--rare contractions efm--140s with mod variability, accels to 190s, no decels Results & Data ([facility]) Vital Signs (Past 12 Hours) Vital Signs Temp Pulse Resp BP 05/28/22 06:42 18 05/28/22 06:42 36.8 C 18 05/28/22 06:43 111 H 125/81 Coding Level of Care Code None Diagnoses Carrier of group B Streptococcus Z22.330 SROM (spontaneous rupture of membranes) with 39 completed weeks gestation Z3A.39
[2022-05-28] MEDS: LACTATED RINGER'S 1,000 ML IV PRN ×2 (07:20→09:23)
[2022-05-28 07:27] LABS: Hematocrit (blood only) 34.5 % (34.1-44.9); Hemoglobin 11.8 g/dl (12.0-16.0); Mean Corpuscular Hgb Conc 34.2 g/dL (32.0-36.0); Mean Corpuscular Volume 81.9 fL (80.0-100.0); Mean Platelet Volume 10.3 fL (9.4-12.3); Platelet Count 278 K/uL (130-400); RDW Coefficient of Variation 13.4 % (11.5-14.5); RDW Standard Deviation 39.7 fL (36.4-46.3); Red Blood Count 4.21 M/uL (3.93-5.22); White Blood Count 10.77 K/ul (4.8-10.8)
[2022-05-28] MEDS ORDERED: fentaNYL citrate 100 MCG/2 ML VIAL ONE (08:15)
[2022-05-28] MEDS ORDERED: SODIUM CHLORIDE 0.9% INJ 10 ML VIAL ONE (08:15)
[2022-05-28] MEDS ORDERED: ePHEDrine sulfate 50 MG/ML AMP ONE (08:15)
[2022-05-28] MEDS ORDERED: BUPIVACAINE 0.25% 30 ML VIAL ONE (08:16)
[2022-05-28] MEDS ORDERED: fentaNYL 2MCG/ML ROPIVACAINE 1.25MG/ML 100 ML BAG EPI ONE (08:16)
[2022-05-28] MEDS ORDERED: LIDOCAINE 2%/EPINEPHRINE 1:200,000 20 ML SDV ONE (08:16)
[2022-05-28] MEDS ORDERED: NALBUPHINE HCL INJ 10 MG/ML AMP IV PRN (08:43)
[2022-05-28] MEDS ORDERED: fentaNYL 2MCG/ML ROPIVACAINE 1.25MG/ML 100 ML BAG EPI PRN (08:43)
[2022-05-28] MEDS ORDERED: ePHEDrine sulfate 50 MG/ML AMP IV PRN (08:43)
[2022-05-28] MEDS ORDERED: diphenhydrAMINE 50 MG/ML VIAL IV PRN (08:43)
[2022-05-28] MEDS ORDERED: NALOXONE HCL 1 MG in SODIUM CHLORIDE 0.9% 1000ML 1,000 ML IV PRN (08:43)
[2022-05-28] MEDS ORDERED: NALOXONE HCL 0.4 MG/1 ML VIAL/CARP IV PRN (08:43)
--- NOTE | 2022-05-28 08:43 | Anesthesiology Consultation ---
Date of Service May 28, 2022 Assessment & Plan (1) Encounter for pre-operative examination: Chart Review Chart Review: Patient NOT seen in Pre Admission Testing and Acceptable Risk for Labor Epidural Consults Requested none History Height/Weight Height: 5 ft 3.5 in Weight: 120.656 kg Allergies Allergy/AdvReac Type Severity Reaction Status Date / Time ragweed pollen Allergy Unknown POSITIVE Verified 05/15/22 08:41 ALLERGY TEST gluten Allergy CELIAC Verified 05/15/22 08:41 DISEASE Egg Derived AdvReac Intermediate UPSET Verified 05/15/22 08:41 STOMACH Medications Home Medications Medication Instructions Recorded Confirmed Last Taken albuterol sulfate 90 mcg/actuation 2 puff inhalation Q6H PRN 07/01/21 05/20/22 Unknown aerosol inhaler Shortness Of Breath Or Wheezing buspirone 5 mg tablet 10 mg PO BID 07/01/21 05/20/22 04/08/22 diphenhydramine HCl 25 mg capsule 25 mg PO DIRECTED PRN ALLERGIES 07/01/21 05/20/22 Unknown (Benadryl) duloxetine 30 mg capsule,delayed 30 mg PO DAILY 07/01/21 05/20/22 04/08/22 release fexofenadine 180 mg tablet 180 mg PO DAILY PRN Congestion 10/16/21 05/20/22 Unknown (Tamela Allergy) prenat.vits,jenise,hpn-gocx-viehl 1 tab PO DAILY 10/16/21 05/20/22 04/08/22 magnesium oxide 500 mg tablet 500 mg PO DAILY 04/09/22 05/20/22 04/08/22 Active Medications Generic Name Dose Route Start Last Admin Trade Name Paolo PRN Reason Stop Dose Admin Lactated Ringer's 1,000 mls @ 125 mls/hr 05/28/22 06:57 05/28/22 07:20 Lr IV 05/30/22 06:56 125 mls/hr .Q8H PRN Administration L&D Protocol Protocol Oxytocin 30 units in 500 mls @ 2 mls/hr 05/28/22 07:04 05/28/22 07:33 Pitocin IV 05/30/22 07:03 0.12 units/hr .Q24H PRN 2 mls/hr Labor Induction/Augmentation Administration Protocol 0.12 UNITS/HR Past Medical History Medical History Anxiety Asthma Celiac disease Concussion COVID-19 Cyst of ovary, left Depression Fibromyalgia H pylori ulcer Past Family History Family History Father Hypertension Eczema Autoimmune hepatitis Arthritis Mother Hypertension Unknown Breast cancer Denies family history of Ovarian cancer Lung cancer Colorectal cancer Past Surgical History Surgical History History of esophagogastroduodenoscopy (EGD) 07/05/17; 01/24/20 Social History Smoking Status: Never smoker Hx Alcohol Use: No Hx Substance Use: No substance use type: does not use Physical Exam Vital Signs Last Vital Signs Temp 98.2 F 05/28/22 07:45 Pulse 113 H 05/28/22 08:41 Resp 16 05/28/22 07:45 BP 125/81 05/28/22 06:43 Pulse Ox 98 05/28/22 08:41 Testing Laboratory Results 05/28/22 07:04
[2022-05-28] MEDS ORDERED: PENICILLIN G POTASSIUM 3 MU in DEXTROSE 5% 100 ML IV PRN (09:57)
--- NOTE | 2022-05-28 14:13 | Delivery Summary ---
Vaginal Delivery Summary Date of Service May 28, 2022 Vaginal Delivery Summary DIAGNOSES: 1. Valenzuela intrauterine at 39w1d gestation. 2. PROM with augmentation of labor. 3. Group B Streptococcus Positive, adequately treated. PROCEDURE: Spontaneous vaginal delivery and repair of first degree laceration. SURGEON: Joi Hughes MD. STATE FEDERAL RELATIONS DEPUTY DIRECTOR: None. ESTIMATED BLOOD LOSS: 400 mL. COMPLICATIONS: None. PLACENTA: Spontaneous and intact with a 3-vessel cord. DISPOSITION: Stable to labor and delivery. DESCRIPTION: The patient pushed well and brought the head to in DOA position. The 's head was allowed to deliver with contraction force and no further active pushing, with the perineum protected during this time. There was no nuchal cord. The left shoulder was anterior. The shoulders and body delivered without any difficulty, and the infant was placed on the maternal abdomen. It was vigorous and moving all extremities, and making respiratory efforts. The cord was doubly clamped by the MD and then cut by the FOB. The placenta delivered spontaneously and was noted to be intact and with a 3VC. The cervix, vagina and perineum were examined and were found to have a first degree laceration which was repaired with vicryl in a running locked manner. The fundus was firm and lochia minimal immediately after delivery. [facility] Vaginal Delivery Charge Vaginal Delivery Codes: 77303 global code for the antepartum, delivery, and post-
[2022-05-28] MEDS ORDERED: oxyCODONE/ACETAMINOPHEN 5mg/325mg TAB PO PRN (14:46)
[2022-05-28] MEDS ORDERED: bisacodyL 10 MG SUPP PR PRN (14:46)
[2022-05-28] MEDS ORDERED: ALBUTEROL HFA 8 GM INHALER INH PRN (14:46)
[2022-05-28] MEDS ORDERED: HYDROCORTISONE ACETATE 25 MG SUPP PR PRN (14:46)
[2022-05-28] MEDS ORDERED: BENZOCAINE 20% AER SPR 82.5 GM CAN EXT PRN (14:46)
[2022-05-28] MEDS ORDERED: LACTATED RINGER'S 1,000 ML IV SCH (14:46)
[2022-05-28] MEDS ORDERED: FEXOFENADINE HCL 180 MG TAB PO PRN (14:46)
[2022-05-28] MEDS ORDERED: DIPHTHERIA/TETANUS/PERTUSSIS 0.5 ML SYR/VIAL IM ONE (14:46)
[2022-05-28] MEDS ORDERED: ACETAMINOPHEN 325 MG TAB PO PRN (14:46)
--- NOTE | 2022-05-28 14:52 | Anesthesia Procedure Note ---
Date of Service May 28, 2022 Anesthesia Post Epidural Note Vital Signs Vital Signs: Temp Pulse Resp BP Pulse Ox 98.4 F 116 H 16 108/77 91 05/28/22 11:55 05/28/22 14:46 05/28/22 11:55 05/28/22 14:46 05/28/22 13:53 Pain Intensity Right Abdomen: Pain Intensity: 1 Notes Mental Status: alert / awake / arousable and participated in evaluation Nausea / Vomiting: adequately controlled Pain: adequately controlled Airway Patency, RR, SpO2: stable & adequate BP & HR: stable & adequate Hydration State: stable & adequate Neuraxial Anesthesia: was administered and sensory block is resolving Anesthetic Complications: no major complications apparent and Pt Satisfied with anesthetic care Epidural: Removed without complications and With tip intact
[2022-05-28] MEDS: IBUPROFEN 600 MG TAB PO PRN (20:38)
[2022-05-28] MEDS: DOCUSATE SODIUM 100 MG CAP PO SCH (20:38)
[2022-05-28] MEDS: busPIRone 5 MG TAB PO SCH (20:38)
[2022-05-29] MEDS: IBUPROFEN 600 MG TAB PO PRN ×4 (00:29→20:08)
--- NOTE | 2022-05-29 06:14 | Obstetrical Progress Note ---
Date of Service May 29, 2022 Assessment & Plan (1) Status post vaginal delivery: - Feels well today. Eating well, voiding well, ambulating well. - Pain well controlled with ibuprofen 600mg Q4H PRN - Routine care -- OOB, ambulation, diet progression as tolerated - After discharge will have 6 week follow-up with Dr. Hughes. Subjective Patient is a 26 y/o female who is now PPD # 1 following spontaneous vaginal delivery at 39 weeks. Reports feeling well overall this morning. Mild abdominal cramping & 2-3/10 pain well managed on analgesics. Voiding well. Tolerating meals overnight and able to ambulate some. Able to pass gas. Has some persistent lochia with some improvement this morning. Currently pumping to bottle feeding. Review of Systems Denies fever, chills, sweats Denies shortness of breath, difficulty breathing, chest pain, palpitations, chest pressure. Denies breast pain. Denies dysuria. Denies headache or changes in vision. Physical Exam General: Alert, oriented. No acute distress. Cardiac: Regular rate and rhythm, no murmurs/rubs/gallops. Respiratory: Clear to auscultation bilaterally a/p, no wheezes/rales/rhonchi. No increased work of breathing. Symmetrical chest rise. No respiratory distress. Abdomen: Soft, nontender, nondistended. Bowel sounds present. Uterus: Uterine fundus firm, palpable 2 cm below umbilicus. Lower Extremities: No lower extremity edema or swelling. No deep calf pain. Kristopher's negative bilaterally. Results & Data ([facility]) Vital Signs (Past 12 Hours) Vital Signs Temp Pulse Resp BP Pulse Ox O2 Del Method 05/29/22 03:15 36.5 C 100 H 18 124/78 97 Room Air 05/29/22 00:15 36.5 C 97 H 20 137/87 98 Room Air 05/28/22 19:50 36.5 C 100 H 20 129/86 97 Room Air Resident Activity Tracking Resident Involvement: Resident Care Provided Care Provided: OB Delivery
[2022-05-29 07:50] LABS: Hematocrit (blood only) 35.7 % (34.1-44.9); Hemoglobin 11.6 g/dl (12.0-16.0); Mean Corpuscular Hemoglobin 27.6 pg (25.0-34.0); Mean Corpuscular Hgb Conc 32.5 g/dL (32.0-36.0); Mean Platelet Volume 10.3 fL (9.4-12.3); Platelet Count 251 K/uL (130-400); RDW Coefficient of Variation 13.4 % (11.5-14.5); RDW Standard Deviation 41.1 fL (36.4-46.3); White Blood Count 13.58 K/ul (4.8-10.8)
[2022-05-29] MEDS: DOCUSATE SODIUM 100 MG CAP PO SCH ×2 (07:55→20:08)
[2022-05-29] MEDS: PRENATAL VITAMIN 1 TAB PO SCH (07:55)
[2022-05-29] MEDS: DULoxetine HCL 30 MG CAP PO SCH (08:26)
[2022-05-29] MEDS: busPIRone 5 MG TAB PO SCH ×2 (08:27→21:09)
[2022-05-29] MEDS ORDERED: bisacodyL 5 MG TABEC PO SCH (20:00)
--- NOTE | 2022-05-30 07:08 | Obstetrical Progress Note ---
Date of Service <Bryce Delaney DO - Last Filed: 05/30/22 07:41> May 30, 2022 Assessment & Plan <Bryce Delaney DO - Last Filed: 05/30/22 07:41> (1) Status post vaginal delivery: - Feels well today. Eating well, voiding well, ambulating well. - Pain well controlled with ibuprofen 600mg Q4H PRN - Routine care -- OOB, ambulation, diet progression as tolerated - After discharge will have 6 week follow-up with Dr. Hughes. - Will D/C today. <Frankie Cuello MD, FACOG - Last Filed: 05/30/22 07:46> (1) Status post vaginal delivery: Subjective <Bryce Delaney DO - Last Filed: 05/30/22 07:41> Patient is a 26 y/o female who is now PPD # 2 following spontaneous vaginal delivery at 39 weeks. Reports feeling well overall this morning. Mild abdominal cramping & 1/10 pain well managed on analgesics. Voiding well. Tolerating meals overnight and able to ambulate some. Able to pass gas. Has some persistent lochia with some improvement this morning. Currently pumping to bottle feeding Review of Systems Denies fever, chills, sweats Denies shortness of breath, difficulty breathing, chest pain, palpitations, chest pressure. Denies breast pain. Denies dysuria. Denies headache or changes in vision. Physical Exam <Bryce Delaney DO - Last Filed: 05/30/22 07:41> General: Alert, oriented. No acute distress. Cardiac: Regular rate and rhythm, no murmurs/rubs/gallops. Respiratory: Clear to auscultation bilaterally a/p, no wheezes/rales/rhonchi. No increased work of breathing. Symmetrical chest rise. No respiratory distress. Abdomen: Soft, nontender, nondistended. Bowel sounds present. Uterus: Uterine fundus firm, palpable 3 cm below umbilicus. Lower Extremities: No lower extremity edema or swelling. No deep calf pain. Kristopher's negative bilaterally. Results & Data ([facility]) <Bryce Delaney - Last Filed: 05/30/22 07:41> Vital Signs (Past 12 Hours) Vital Signs Temp Pulse Resp BP Pulse Ox O2 Del Method 05/29/22 23:11 37 C 98 H 18 137/88 94 Room Air 05/29/22 20:11 37.5 C 104 H 18 135/89 98 Room Air <Frankie Cuello MD, FACOG - Last Filed: 05/30/22 07:46> Co-Signing Physician Notes Resident Physician Supervision Note: I was present with Dr. Delaney during the history and exam. I discussed the case with the resident and agree with the findings and plan as documented in the note. Any exceptions or clarifications are listed here: [None] Documented By: Frankie Cuello MD, FACOG Resident Activity Tracking <Bryce Delaney DO - Last Filed: 05/30/22 07:41> Resident Involvement: Resident Care Provided Care Provided: OB Delivery
[2022-05-30 07:36] LABS: Hematocrit (blood only) 29.5 % (34.1-44.9); Hemoglobin 9.7 g/dl (12.0-16.0)
[2022-05-30] MEDS: DOCUSATE SODIUM 100 MG CAP PO SCH (09:19)
[2022-05-30] MEDS: PRENATAL VITAMIN 1 TAB PO SCH (09:19)
[2022-05-30] MEDS: busPIRone 5 MG TAB PO SCH (09:20)
[2022-05-30] MEDS: DULoxetine HCL 30 MG CAP PO SCH (09:20)
== END 2022-05-30 12:00 | disposition home or self-care (01) | DRG 807 ==
LOC: OPB 06:25 → 4S1 06:27 → 4E2 16:32

== ENCOUNTER 2023-06-10 05:10 | Inpatient (IN) ==
[2023-06-10] MEDS ORDERED: ALBUT/IPRATROP 3MG/0.5MG NEB 3 ML VIAL NEB STA (05:33)
[2023-06-10 06:30] LABS: Basophils # (auto) 0.04 K/uL (0.00-0.20); Basophils % (auto) 0.4 %; Eosinophils % (auto) 3.7 %; Hematocrit (blood only) 40.1 % (37.0-47.0); Hemoglobin 13.6 g/dl (12.0-16.0); Immature Granulocytes # (auto) 0.05 K/uL (0.01-0.20); Immature Granulocytes % (auto) 0.5 %; Lymphocytes # (auto) 0.98 K/uL (1.20-3.40); Mean Corpuscular Hemoglobin 28.6 pg (25.0-34.0); Mean Corpuscular Hgb Conc 33.9 g/dL (32.0-36.0); Mean Corpuscular Volume 84.4 fL (80.0-100.0); Mean Platelet Volume 9.7 fL (9.4-12.4); Monocytes # (auto) 0.95 K/uL (0.11-0.59); Monocytes % (auto) 8.7 %; Neutrophils # (auto) 8.49 K/uL (1.40-6.50); Neutrophils % (auto) 77.7 %; Platelet Count 274 K/uL (130-400); RDW Coefficient of Variation 13.4 % (11.5-14.5); RDW Standard Deviation 41.6 fL (36.4-46.3); Red Blood Count 4.75 M/uL (4.20-5.40); White Blood Count 10.91 K/ul (4.8-10.8)
[2023-06-10] MEDS ORDERED: SODIUM CHLORIDE 0.9% 1,000 ML IV ONE (06:31)
[2023-06-10 06:48] LABS: Albumin Globulin Ratio 1.3 (0.9-2); Albumin Level 3.9 gm/dl (3.4-5.0); BUN Creatinine Ratio 10.3 (10-20); Bilirubin,Total 0.4 mg/dl (0.2-1.0); Calcium 9.2 mg/dl (8.6-10.3); Creatinine Clr Calc Pharmacy 156.9 ml/min; Est GFR (African American) 148.5 ml/min; Est GFR (Non-African American) 128.1 ml/min; Potassium 3.8 mmol/L (3.5-5.1); Total Protein 6.9 gm/dl (6.0-8.3)
--- NOTE | 2023-06-10 06:48 | Emergency Department Note ---
Impression & Plan Asthma exacerbation, Rhinovirus infection ED Provider Note HISTORY OF PRESENT ILLNESS: Patient is a 27-year-old female presenting with shortness of breath. Patient reports she has been feeling short of breath and having difficulties breathing for the last 48 hours. Reports a history of asthma and states she has been trying her at home inhalers with little relief in symptoms. She denies any sick contact exposures, but her son does attend daycare. Reports that her chest feels tight. Denies any fevers. She has had a cough productive of white sputum. Denies any abdominal pain. Denies any DVT or PE history. She disclosed that she is having lower abdominal cramps to the nursing staff, but she denies them to me. Denies any vaginal bleeding or discharge. She is an estimated 8 weeks ROS: as above PHYSICAL EXAM: Constitutional: Patient appears in no acute distress. HENT: Head: Normocephalic and atraumatic. Eyes: EOMI, PERRL Mouth/Throat: Mucous membranes moist. Neck: Trachea midline. Neck supple. Cardiovascular: Tachycardic with regular rhythm. No murmurs, rubs or gallops. Intact distal pulses. Pulmonary/Chest: No respiratory distress. Breath sounds clear and equal bilaterally. No wheezes or rales. Abdominal: Abdomen soft, no tenderness, rebound or guarding. Musculoskeletal: No edema, tenderness or deformity noted. Skin: Warm and dry. No rash, erythema, pallor or cyanosis Psychiatric: Appropriate mood and affect for situation. Neurological: Alert and keenly responsive. CN II-XII grossly intact, moving all extremities equally and fully. MDM: - Vitals signs showed tachycardia - History obtained via patient. Patient presents with shortness of breath. Patient reports has been having progressively worsening shortness of breath and difficulties breathing over the last 48 hours. She has a history of asthma and has been using her inhalers at home with little relief of symptoms. She denies any recent sick contact exposures. Denies any fevers. She has had a cough productive of white sputum. She is 8 weeks . - Chronic conditions affecting care: asthma - Differential diagnoses include, but are not limited to: Congestive heart failure; acute coronary syndrome; COPD/asthma exacerbation; pulmonary edema; pulmonary embolism; pneumonia; pneumothorax; viral syndrome - Order placed for continuous cardiac monitoring. At this time, monitor showed rate of 118 bpm with normal sinus rhythm, per my interpretation. - External medical records reviewed. - EKG reviewed by myself showed normal sinus rhythm. Rate tachycardic at 121 bpm. QTc 474. No acute ischemic changes - Laboratory workup interpreted by myself showed slight leukocytosis (WBC 10.91); stable electrolytes; detectable hCG - UA showed evidence of infection/bacteruria. Given 2g IV rocephin - Patient given duoneb treatment on arrival to ER. - CXR negative for pneumonia, per my interpretation - Respiratory panel positive for rhinovirus infection. - Patient remained persistently tachycardic in the emergency department, but I believe this is likely secondary to the albuterol that she has had today. Considered PE, but think this is less likely in the setting of her rhinovirus and acute asthma exacerbation. - Patient reassessed at 07:48. She now has bilateral expiratory wheezes. IV solumedrol, IV magnesium and a continuous duoneb ordered. - On reassessment at 10:15 AM, patient reports feeling improved. However, with ambulation she became significantly tachypneic and saturations decreased to 88% on room air. She was placed on 1.5 L of supplemental oxygen. - Discussion was had with medical care manager about patient's case and need for admission - Hospitalist, Dr. Wade, consulted for admission - Patient admitted to [facility] service for further evaluation and management. ASSESSMENT AND PLAN: Diagnosis: asthma exacerbation; rhinovirus infection Plan: admit Past Med/Surg History Medical History (Updated 06/10/23 @ 10:46 by Traci Fish MD) History of gastric ulcer Ovarian cyst IBS (irritable bowel syndrome) GERD (gastroesophageal reflux disease) Anxiety and depression TMJ click Fibromyalgia Celiac disease Asthma uses PRN inh daily Surgical History (Updated 04/01/23 @ 15:16 by Gisella Huerta MD, FACOG) S/P ovarian cystectomy bilateral dermoids 02/2023 History of esophagogastroduodenoscopy (EGD) 07/05/17; 01/24/20 Family History Father Autoimmune hepatitis Arthritis Eczema Hypertension Mother Hypertension Unknown Breast cancer Other No family history of adverse response to anesthesia Denies family history of Ovarian cancer Lung cancer Colorectal cancer Social History (Updated 06/01/23 @ 09:55 by Chari Yates) Smoking Status: Never smoker Second Hand Exposure: No; Do You Dip or Chew Tobacco: No; Hx Alcohol Use: Yes Hx Substance Use: No Preferred Language: Sinhala Communication Ability: Effective Flume Worker Required: No Beliefs That Will Affect Care: None marital status: marital status details: Engaged to Cody Garcia (26) [phone] Current Living Situation: Spouse Current Living Situation Comment: Lives with spouse, and son, 5 cats, spouse to change litter. current occupational status: employed current occupation: [employer] Feels Safe at Home: Yes Assistive Devices: Glasses Allergies Allergies Allergy/AdvReac Type Severity Reaction Status Date / Time ragweed pollen Allergy Unknown POSITIVE Verified 06/08/23 08:29 ALLERGY TEST gluten Allergy CELIAC Verified 06/08/23 08:29 DISEASE Egg Derived AdvReac Intermediate UPSET Verified 06/08/23 08:29 STOMACH Home Meds Home Medications Medication Instructions Recorded Confirmed albuterol sulfate 90 mcg/actuation 2 puff inhalation Q6H PRN 07/01/21 06/10/23 aerosol inhaler Shortness Of Breath Or Wheezing fexofenadine 180 mg tablet 180 mg PO DAILY PRN Congestion 10/16/21 06/10/23 (Tamela Allergy) prenat.vits,jenise,[id number] 1 tab PO QPM 10/16/21 06/10/23 buspirone 10 mg tablet 10 mg PO BID 02/11/23 06/10/23 fluoxetine 20 mg capsule (Prozac) 20 mg PO QAM 03/10/23 06/10/23 Results & Data (ED) Vital Signs Vital Signs - 24 hr 06/10/23 05:14 06/10/23 05:14 06/10/23 05:34 Temperature 36.9 C Temperature Source Temporal Artery Scan Pulse Rate 119 H 108 H Pulse Rate [Apical] Respiratory Rate 22 Respiratory Effort / Characteristics Respiratory Depth Blood Pressure 127/85 Blood Pressure [Right Arm] Blood Pressure Mean 99 Blood Pressure Mean [Right Arm] Pulse Oximetry 93 Oxygen Delivery Method Room Air Room Air Oxygen Flow Rate Sepsis Recent Fever Within 48 Hours No Sepsis New/Unexplained Change in Mental Status No Sepsis Action Taken by Nursing No Action Required 06/10/23 06:00 06/10/23 06:38 06/10/23 07:26 Temperature Temperature Source Pulse Rate 115 H Pulse Rate [Apical] 120 H Respiratory Rate 22 26 H Respiratory Effort / Characteristics Labored Respiratory Depth Blood Pressure 128/73 Blood Pressure [Right Arm] Blood Pressure Mean 91 Blood Pressure Mean [Right Arm] Pulse Oximetry 99 92 91 Oxygen Delivery Method Room Air Room Air Oxygen Flow Rate Sepsis Recent Fever Within 48 Hours Sepsis New/Unexplained Change in Mental Status Sepsis Action Taken by Nursing 06/10/23 07:53 06/10/23 09:11 06/10/23 09:32 Temperature Temperature Source Pulse Rate Pulse Rate [Apical] 112 H 122 H Respiratory Rate 26 H 22 Respiratory Effort / Characteristics Spontaneous Respiratory Depth Normal Blood Pressure Blood Pressure [Right Arm] 119/74 Blood Pressure Mean Blood Pressure Mean [Right Arm] 89 Pulse Oximetry 92 94 Oxygen Delivery Method Room Air Room Air Oxygen Flow Rate Sepsis Recent Fever Within 48 Hours Sepsis New/Unexplained Change in Mental Status Sepsis Action Taken by Nursing 06/10/23 09:44 06/10/23 10:01 06/10/23 10:14 Temperature Temperature Source Pulse Rate 125 H Pulse Rate [Apical] 122 H 134 H Respiratory Rate 24 Respiratory Effort / Characteristics Non-Labored Spontaneous Respiratory Depth Blood Pressure Blood Pressure [Right Arm] Blood Pressure Mean Blood Pressure Mean [Right Arm] Pulse Oximetry 90 93 Oxygen Delivery Method Room Air Nasal Cannula Oxygen Flow Rate 1.5 Sepsis Recent Fever Within 48 Hours Sepsis New/Unexplained Change in Mental Status Sepsis Action Taken by Nursing Laboratory Data 06/10/23 06:00 06/10/23 06:00 Lab Results 06/10/23 06/10/23 06/10/23 Range/Units 05:30 06:00 07:10 WBC 10.91 H (4.8-10.8) K/ul RBC 4.75 (4.20-5.40) M/uL Hgb 13.6 (12.0-16.0) g/dl Hct 40.1 (37.0-47.0) % MCV 84.4 (80.0-100.0) fL MCH 28.6 (25.0-34.0) pg MCHC 33.9 (32.0-36.0) g/dL RDW Std Deviation 41.6 (36.4-46.3) fL RDW Coeff of [place] 13.4 (11.5-14.5) % Plt Count 274 (130-400) K/uL MPV 9.7 (9.4-12.4) fL Immature Gran % (Auto) 0.5 % Neut % (Auto) 77.7 % Lymph % (Auto) 9.0 % [place] % (Auto) 8.7 % Eos % (Auto) 3.7 % Baso % (Auto) 0.4 % Neut # (Auto) 8.49 H (1.40-6.50) K/uL Lymph # (Auto) 0.98 L (1.20-3.40) K/uL [place] # (Auto) 0.95 H (0.11-0.59) K/uL Eos # (Auto) 0.40 (0.00-0.50) K/uL Baso # (Auto) 0.04 (0.00-0.20) K/uL Immature Gran # (Auto) 0.05 (0.01-0.20) K/uL Sodium 134 L (136-145) mmol/L Potassium 3.8 (3.5-5.1) mmol/L Chloride 102 (98-107) mmol/L Carbon Dioxide 25 (21-32) mmol/L Anion Gap 7 (3-11) BUN 6 (6-23) mg/dl Creatinine 0.58 L (0.6-1.2) mg/dl Est Cr Clr Drug Dosing 156.9 ml/min Est GFR ( Amer) 148.5 ml/min Est GFR (Non-Af Amer) 128.1 ml/min BUN/Creatinine Ratio 10.3 (10-20) Glucose 101 H (70-99(Fasting)) mg/dl Calcium 9.2 (8.6-10.3) mg/dl Magnesium 1.7 (1.7-2.4) mg/dl Total Bilirubin 0.4 (0.2-1.0) mg/dl AST 14 (13-39) U/L ALT 10 (7-52) U/L Alkaline Phosphatase 83 (34-104) U/L Total Protein 6.9 (6.0-8.3) gm/dl Albumin 3.9 (3.4-5.0) gm/dl Globulin 3.0 (2.5-4.0) gm/dl Albumin/Globulin Ratio 1.3 (0.9-2) HCG, Quant 93745 mIU/ml Urine Color Yellow Urine Appearance Cloudy A (Clear) Urine pH >= 9.0 H (4.5-7.5) Ur Specific [place] 1.022 (1.000-1.030) Urine Protein Trace H (Negative) Urine Glucose (UA) Negative (Negative) Urine Ketones Negative (Negative) Urine Blood Negative (Negative) Urine Nitrite Negative (Negative) Urine Bilirubin Negative (Negative) Urine Urobilinogen Negative (Negative) Ur Leukocyte Esterase Trace H (Negative) Urine WBC (Auto) 10-30 H (0-5) /hpf Urine RBC (Auto) 0-4 (0-4) /hpf U Hyaline Cast (Auto) Not Reportable U Epithel Cells (Auto) >30 H (0-5) /lpf Urine Bacteria (Auto) 2+ H (Negative) Ur Renal Epithelial Cell Not Reportable Adenovirus (PCR) Not Detected (NotDetected) B. pertussis DNA (PCR) Not Detected (NotDetected) B.parapertussis DNA PCR Not Detected (NotDetected) C. pneumoniae DNA (PCR) Not Detected (NotDetected) Coronavirus OC43 (PCR) Not Detected (NotDetected) Coronavirus HKU1 (PCR) Not Detected (NotDetected) Coronavirus 229E (PCR) Not Detected (NotDetected) SARS-CoV-2 (PCR) Not Detected (NotDetected) Coronavirus NL63 (PCR) Not Detected (NotDetected) Human Metapneumovir PCR Not Detected (NotDetected) Influenza Type A (PCR) Not Detected (NotDetected) Influenza Type B (PCR) Not Detected (NotDetected) M. pneumoniae (PCR) Not Detected (NotDetected) Parainfluenza 1 (PCR) Not Detected (NotDetected) Parainfluenza 2 (PCR) Not Detected (NotDetected) Parainfluenza 3 (PCR) Not Detected (NotDetected) Parainfluenza 4 (PCR) Not Detected (NotDetected) RSV (PCR) Not Detected (NotDetected) Entero/Rhino (PCR) DETECTED A* (NotDetected) Administered Medications Discontinued Medications Albuterol (Albut/Ipratrop 3mg/0.5mg Neb 3 Ml Vial) 3 ml NEB NOW STA; Protocol Stop: 06/10/23 05:34 Last Admin: 06/10/23 05:39 Dose: 3 ml Documented By: FELICIA Albuterol (Albut/Ipratrop 3mg/0.5mg Neb 3 Ml Vial) 12 ml NEB ONE ONE; Protocol Stop: 06/10/23 07:48 Last Admin: 06/10/23 07:50 Dose: 12 ml Documented By: JC Sodium Chloride (Nss) 1,000 mls @ 999 mls/hr IV .Q1H1M ONE Stop: 06/10/23 07:31 Last Infusion: 06/10/23 07:43 Dose: Infused Documented By: Admin: 06/10/23 06:42 Dose: 999 mls/hr Documented By: FELICIA Magnesium Sulfate/Dextrose (Magnesium Sulfate / D5w) 1 gm in 100 mls @ 100 mls/hr IV NOW STA Stop: 06/10/23 08:02 Last Infusion: 06/10/23 08:15 Dose: Infused Documented By: Admin: 06/10/23 07:14 Dose: 100 mls/hr Documented By: JC Acetaminophen (Ofirmev) 1,000 mg in 100 mls @ 400 mls/hr IV NOW STA Stop: 06/10/23 07:50 Last Infusion: 06/10/23 08:03 Dose: Infused Documented By: Admin: 06/10/23 07:47 Dose: 400 mls/hr Documented By: JC Ceftriaxone Sodium (Rocephin) 2,000 mg in 50 mls @ 100 mls/hr IV NOW STA Stop: 06/10/23 08:31 Last Infusion: 06/10/23 09:21 Dose: Infused Documented By: Admin: 06/10/23 08:50 Dose: 100 mls/hr Documented By: JC Methylprednisolone (Methylprednisolone 125 Mg/2 Ml Vial) 125 mg IV NOW STA Stop: 06/10/23 07:04 Last Admin: 06/10/23 09:43 Dose: Not Given Documented By: JC Imaging Data Radiologist's Impression: Chest X-Ray 06/10/23 07:07 XR chest 1V portable HISTORY: 27 years-old Female cough; shortness of breath acute cough or shortness of breath COMPARISON: 04/09/2022 TECHNIQUE: AP view of the chest FINDINGS: Cardiomediastinal and hilar silhouettes are within normal limits. There is no pneumothorax, pleural effusion, airspace consolidation or pulmonary edema. Bones appear grossly intact. IMPRESSION: No acute process. ACT 112: Negative or not required by law. The above report was generated using voice recognition software. It may contain grammatical, syntax or spelling errors. Electronically signed by: Jose Antonio Robbins M.D. 06/10/2023 7:35 AM Discharge Plan Visit Data Chief Complaint: Shortness of Breath/Dyspnea Stated Complaint: 8 WKS, SOB ED Provider: Traci Fish Discharge Problem: Asthma exacerbation, Rhinovirus infection Forms Stand Alone Forms: [facility] Prescriptions Prescriptions: No Action albuterol sulfate 90 mcg/actuation HFA aerosol inhaler 2 puff inhalation Q6H PRN (Reason: Shortness Of Breath Or Wheezing) fexofenadine [Tamela Allergy] 180 mg tablet 180 mg PO DAILY PRN (Reason: Congestion) buspirone 10 mg tablet 10 mg PO BID prenat.vits,jenise,[id number]-[id number]-[id number] Tablet 1 tab PO QPM fluoxetine [Prozac] 20 mg capsule 20 mg PO QAM Referrals Referrals: Jorge Ken MD [Primary Care Provider] -
[2023-06-10] MEDS ORDERED: methylPREDNISolone 125 MG/2 ML VIAL IV STA (07:03)
[2023-06-10] MEDS ORDERED: MAGNESIUM SULFATE / D5W 1 GM/100 ML BAG IV STA (07:03)
[2023-06-10 07:05] LABS: Adenovirus PCR Not Detected (NotDetected); Bordetella parapertussis PCR Not Detected (NotDetected); Bordetella pertussis PCR Not Detected (NotDetected); Chlamydia pneumoniae PCR Not Detected (NotDetected); Coronavirus 229E PCR Not Detected (NotDetected); Coronavirus CoV-2 (COVID19)PCR Not Detected (NotDetected); Coronavirus HKU1 PCR Not Detected (NotDetected); Coronavirus NL63 PCR Not Detected (NotDetected); Coronavirus OC43PCR Not Detected (NotDetected); Human Metapneumovirus PCR Not Detected (NotDetected); Influenza A PCR Not Detected (NotDetected); Influenza B PCR Not Detected (NotDetected); Mycoplasma pneumoniae PCR Not Detected (NotDetected); Parainfluenza Virus 1 PCR Not Detected (NotDetected); Parainfluenza Virus 2 PCR Not Detected (NotDetected); Parainfluenza Virus 3 PCR Not Detected (NotDetected); Parainfluenza Virus 4 PCR Not Detected (NotDetected); Respiratory Syncytial VirusPCR Not Detected (NotDetected)
[2023-06-10 07:29] LABS: Rhinovirus/Enterovirus PCR DETECTED (NotDetected)
[2023-06-10] MEDS ORDERED: ACETAMINOPHEN 1,000 MG/100 ML VIAL IV STA (07:36)
--- NOTE | 2023-06-10 07:36 | XRay Report ---
XR chest 1V portable HISTORY: 27 years-old Female cough; shortness of breath acute cough or shortness of breath COMPARISON: 04/09/2022 TECHNIQUE: AP view of the chest FINDINGS: Cardiomediastinal and hilar silhouettes are within normal limits. There is no pneumothorax, pleural e ffusion, airspace consolidation or pulmonary edema. Bones appear grossly intact. IMPRESSION: No acute process. ACT 112: Negative or not required by law. The above report was generated using voice recognition software. It may contain grammatical, syntax o r spelling errors. Electronically signed by: Jose Antonio Robbins M.D. 06/10/2023 7:35 AM
[2023-06-10 07:39] LABS: Appearance Urine Cloudy (Clear); Bacteria Urine Automated 2+ (Negative); Bilirubin Urine Negative (Negative); Blood Urine Negative (Negative); Color Urine Yellow; Epithelial Cell Urine Auto >30 /lpf (0-5); Glucose Urine UA Negative (Negative); Ketones Urine Negative (Negative); Leukocyte Esterase Urine Trace (Negative); Nitrite Urine Negative (Negative); Specific Gravity Urine 1.022 (1.000-1.030); Urobilinogen Urine Negative (Negative); pH Urine >= 9.0 (4.5-7.5)
[2023-06-10] MEDS ORDERED: ALBUT/IPRATROP 3MG/0.5MG NEB 3 ML VIAL NEB ONE (07:47)
[2023-06-10 07:52] LABS: Protein Urine Trace (Negative)
[2023-06-10] MEDS ORDERED: cefTRIAXone SODIUM 2,000 MG/50 ML BAG IV STA (08:02)
[2023-06-10 08:22] LABS: RBC Urine Automated 0-4 /hpf (0-4)
--- NOTE | 2023-06-10 11:10 | History & Physical Report ---
Date of Service June 10, 2023 Assessment & Plan (1) Asthma exacerbation: Plan: History of asthma with occasional exacerbation controlled with use of albuterol inhalers Has been complaining of worsening of symptoms for the last 2 days Desaturation with activity in the emergency room and also increasing shortness of breath and wheezing No improvement with nebulized treatment Noted to be rhinovirus positive Will continue with intravenous Solu-Medrol and nebulized bronchodilator Will add steroid inhaler regularly at discharge to prevent frequent attack Likely discharge in a day or 2 (2) Rhinovirus infection: Plan: Observe in the hospital (3) IBS (irritable bowel syndrome): Plan: No acute issues (4) Celiac disease: Plan: Denies any symptoms DVT prophylaxis SCDs Increase ambulation CODE STATUS Full History of Present Illness Chief Complaint: Increasing shortness of breath and wheezing for the last 2 days Primary Care Provider: Jorge Ken MD She is a 27-year-old female significant past medical history of asthma, atrial bowel syndrome , celiac disease apparently has been complaining of cough, runny nose with increasing shortness of breath and wheezing for the last 2 days. No fever or chills and has cough without any productive sputum. Denies any nausea no vomiting, denies any chest pain and/or palpitation. Gets easily short of breath with wheezing with minimal exertion. Noted to have moderate shortness of breath wheezing at rest in the emergency room and desaturated with minimal exertion. Received nebulized bronchodilator and intravenous Solu-Medrol and was admitted to med/telemetry unit for continuation of care. Allergies Allergy/AdvReac Type Severity Reaction Status Date / Time ragweed pollen Allergy Unknown POSITIVE Verified 06/08/23 08:29 ALLERGY TEST gluten Allergy CELIAC Verified 06/08/23 08:29 DISEASE Egg Derived AdvReac Intermediate UPSET Verified 06/08/23 08:29 STOMACH Home Medications Medication Instructions Recorded Confirmed Type albuterol sulfate 90 mcg/actuation 2 puff inhalation Q6H PRN 07/01/21 06/10/23 History aerosol inhaler Shortness Of Breath Or Wheezing fexofenadine 180 mg tablet 180 mg PO DAILY PRN Congestion 10/16/21 06/10/23 History (Tamela Allergy) prenat.vits,jenise,xge-rrvn-ihzlj 1 tab PO QPM 10/16/21 06/10/23 History buspirone 10 mg tablet 10 mg PO BID 02/11/23 06/10/23 History fluoxetine 20 mg capsule (Prozac) 20 mg PO QAM 03/10/23 06/10/23 History Past Med/Surg History Medical History (Updated 06/10/23 @ 10:46 by Traci Fish MD) History of gastric ulcer Ovarian cyst IBS (irritable bowel syndrome) GERD (gastroesophageal reflux disease) Anxiety and depression TMJ click Fibromyalgia Celiac disease Asthma uses PRN inh daily Surgical History (Updated 04/01/23 @ 15:16 by Gisella Huerta MD, FACOG) S/P ovarian cystectomy bilateral dermoids 02/2023 History of esophagogastroduodenoscopy (EGD) 07/05/17; 01/24/20 Family History Father Autoimmune hepatitis Arthritis Eczema Hypertension Mother Hypertension Unknown Breast cancer Other No family history of adverse response to anesthesia Denies family history of Ovarian cancer Lung cancer Colorectal cancer Social History (Updated 06/01/23 @ 09:55 by Chari Yates) Smoking Status: Never smoker Second Hand Exposure: No; Do You Dip or Chew Tobacco: No; Hx Alcohol Use: Yes Hx Substance Use: No Preferred Language: Nicaraguan Communication Ability: Effective Filbert Grower Required: No Beliefs That Will Affect Care: None marital status: marital status details: Engaged to Cody Radha (26) [phone] Current Living Situation: Spouse Current Living Situation Comment: Lives with spouse, and son, 5 cats, spouse to change litter. current occupational status: employed current occupation: [employer] Feels Safe at Home: Yes Assistive Devices: Glasses Review of Systems Review of Systems: All systems reviewed and are unremarkable except as noted below Physical Exam Physical Exam: Lying in bed with minimal distress due to shortness of breath and wheezing Constitutional: well developed, well nourished, + ill appearing and + obese Eyes: PERRL, conjunctivae normal, anicteric sclerae ENMT: external ear and nose normal, oropharynx normal Neck: trachea midline, no thyromegaly Respiratory: no respiratory distress Auscultation: + diminished lung sounds and + wheezes (Moderate wheezing bilateral) Cardiovascular: Rate/Rhythm: regular rate, regular rhythm and + tachycardic Heart Sounds: normal S1 and normal S2; no murmur Extremities: no edema Gastrointestinal (Abdomen): Inspection/Auscultation: normal bowel sounds; abdomen not distended Percussion/Palpation: abdomen soft; abdomen nontender Musculoskeletal: No acute arthritis involving any of the joint Neurologic: normal touch/pain/proprioception and moves all extremities; no focal motor deficits Psychiatric: A+Ox3, euthymic affect Lymphatic: no cervical or axillary lymphadenopathy Results & Data Results & Data Vital Signs (Past 12 Hours) Vital Signs Temp Pulse Pulse Resp BP BP Pulse Ox 06/10/23 10:14 134 H 93 06/10/23 10:01 122 H 24 90 06/10/23 09:44 125 H 06/10/23 09:32 119/74 06/10/23 09:11 122 H 22 94 06/10/23 07:53 112 H 26 H 92 06/10/23 07:26 120 H 26 H 91 06/10/23 06:38 92 06/10/23 06:00 115 H 22 128/73 99 06/10/23 05:34 108 H 06/10/23 05:14 06/10/23 05:14 36.9 C 119 H 22 127/85 93 O2 Del Method O2 Flow Rate 06/10/23 10:14 Nasal Cannula 1.5 06/10/23 10:01 Room Air 06/10/23 09:44 06/10/23 09:32 06/10/23 09:11 Room Air 06/10/23 07:53 Room Air 06/10/23 07:26 Room Air 06/10/23 06:38 Room Air 06/10/23 06:00 06/10/23 05:34 06/10/23 05:14 Room Air 06/10/23 05:14 Room Air Laboratory Results Short CBC 06/10/23 Range/Units 06:00 WBC 10.91 H (4.8-10.8) K/ul Hgb 13.6 (12.0-16.0) g/dl Hct 40.1 (37.0-47.0) % Plt Count 274 (130-400) K/uL BMP 06/10/23 06:00 Sodium 134 L Potassium 3.8 Chloride 102 Carbon Dioxide 25 BUN 6 Creatinine 0.58 L Glucose 101 H Calcium 9.2 Liver Function 06/10/23 Range/Units 06:00 Total Bilirubin 0.4 (0.2-1.0) mg/dl AST 14 (13-39) U/L ALT 10 (7-52) U/L Alkaline Phosphatase 83 (34-104) U/L Albumin 3.9 (3.4-5.0) gm/dl Urine 06/10/23 Range/Units 07:10 Urine Color Yellow Urine Appearance Cloudy A (Clear) Urine pH >= 9.0 H (4.5-7.5) Ur Specific [place] 1.022 (1.000-1.030) Urine Protein Trace H (Negative) Urine Glucose (UA) Negative (Negative) Medications Administered Current Inpatient Medications Methylprednisolone (Methylprednisolone 40 Mg/Ml Vial) 40 mg IV Q8H MARITA Stop: 07/10/23 10:59 Code Status & VTE Plan VTE Prophylaxis Plan VTE Prophylaxis will be ordered: Yes
[2023-06-10] MEDS: methylPREDNISolone 40 MG in SYRINGE 0 ML IV SCH ×2 (12:09→20:09)
--- NOTE | 2023-06-10 12:13 | Electrocardiogram Report ---
Test Reason : Blood Pressure : / mmHG Vent. Rate : 121 BPM Atrial Rate : 121 BPM P-R Int : 128 ms QRS Dur : 096 ms QT Int : 334 ms P-R-T Axes : 046 009 038 degrees QTc Int : 474 ms Sinus tachycardia Abnormal ECG When compared with ECG of 09-APR-2022 03:59, No significant change Confirmed by Ham Ramirez ([id number]) on 06/10/2023 12:12:53 PM Referred By: REFERRED SELF Confirmed By:Ham Ramirez
[2023-06-10] MEDS ORDERED: FEXOFENADINE HCL 180 MG TAB PO PRN (14:02)
[2023-06-10] MEDS: ALBUTEROL 0.083% NEBU SOLN 3 ML VIAL NEB PRN ×2 (14:32→20:30)
[2023-06-10] MEDS: FLUTICASONE FUROATE 200MCG 14 PUFFS/INHALER INH SCH (15:06)
[2023-06-10] MEDS: ACETAMINOPHEN 500 MG TAB PO PRN (16:11)
[2023-06-10] MEDS: ALBUTEROL HFA 8 GM INHALER INH PRN (18:27)
[2023-06-10] MEDS: busPIRone 5 MG TAB PO SCH (20:09)
[2023-06-10] MEDS: PRENATAL VITAMIN 1 TAB PO SCH (20:09)
[2023-06-11] MEDS: methylPREDNISolone 40 MG in SYRINGE 0 ML IV SCH ×3 (03:48→18:09)
[2023-06-11] MEDS: FLUTICASONE FUROATE 200MCG 14 PUFFS/INHALER INH SCH (07:57)
[2023-06-11] MEDS: FLUoxetine HCL 20 MG CAP PO SCH (07:57)
[2023-06-11] MEDS: ALBUTEROL HFA 8 GM INHALER INH PRN (07:57)
[2023-06-11] MEDS: busPIRone 5 MG TAB PO SCH ×2 (07:57→20:59)
[2023-06-11] MEDS: ALBUTEROL 0.083% NEBU SOLN 3 ML VIAL NEB PRN (10:53)
--- NOTE | 2023-06-11 12:06 | Hospitalist Progress Note ---
Date of Service June 11, 2023 Assessment & Plan (1) Asthma exacerbation: (2) Rhinovirus infection: Plan 27-year-old female with PMH of asthma, irritable bowel syndrome, celiac disease who reports she has been using rescue inhaler almost daily for more than a year came in with complaint of increasing shortness of breath and dry cough for the last few days prior to arrival. 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 Pulmonology consult if not improving. Pulmonology follow-up and PFT testing upon discharge. Rhinovirus infection: Observe in the hospital IBS (irritable bowel syndrome): No acute issues Celiac disease: Denies any symptoms DVT prophylaxis: SCDs, Increase ambulation CODE STATUS: Full Admission and Anticipated Discharge Date Admission Date: June 10, 2023 Subjective Patient was seen and examined at bedside. Patient was lying in bed, on 4 L oxygen via nasal cannula, resting comfortably, not in any acute distress. Patient reports eating okay and moving bowels okay, denies any new acute event overnight. Patient reports having dry cough, breathing getting little better. Physical Exam Physical Exam: GENERAL: Alert and oriented x3. NAD, on 4 L oxygen via nasal cannula. Obese class III. HEENT: No pallor, no icterus. Pupils equal, round and reactive to light. Oral mucosa moist. NECK: No JVD, no neck masses. HEART: S1 and S2 heard. Regular rate and rhythm. No murmur, no gallop. RESPIRATORY SYSTEM: Normal AP diameter. No accessory muscle use. bl wheezing, occ crackles. ABDOMEN: Soft, bowel sounds present, nontender, no distention. CENTRAL NERVOUS SYSTEM: No facial droop. Speech is clear. Obeys simple commands. Moves extremities. EXTREMITIES: No edema, no erythema seen. Results & Data Results & Data Vital Signs (Past 12 Hours) Vital Signs Temp Pulse Pulse Resp BP BP Pulse Ox 06/11/23 11:50 123 H 115/71 94 06/11/23 11:42 36.7 C 122 H 24 88/57 L 95 06/11/23 10:55 109 H 22 91 06/11/23 08:12 36.6 C 94 H 16 127/76 90 06/11/23 08:10 06/11/23 07:33 101 H 06/11/23 03:04 36.8 C 89 16 113/72 94 O2 Del Method O2 Flow Rate 06/11/23 11:50 Nasal Cannula 4 06/11/23 11:42 Nasal Cannula 5 06/11/23 10:55 Nasal Cannula 5 06/11/23 08:12 Nasal Cannula 4 06/11/23 08:10 Nasal Cannula 5 06/11/23 07:33 06/11/23 03:04 Nasal Cannula 5
[2023-06-11] MEDS: FLUTICASONE/VILANTEROL 200/25MCG 14 PUFFS/INHALER INH SCH (13:47)
[2023-06-11] MEDS: BENZONATATE 100 MG CAPSULE PO SCH ×2 (13:47→20:59)
[2023-06-11] MEDS: ACETAMINOPHEN 500 MG TAB PO PRN ×2 (13:56→20:59)
[2023-06-11] MEDS: PRENATAL VITAMIN 1 TAB PO SCH (20:59)
[2023-06-11] MEDS: guaiFENesin 600 MG TABCR PO SCH (20:59)
[2023-06-12] MEDS: methylPREDNISolone 40 MG in SYRINGE 0 ML IV SCH ×3 (02:51→18:28)
[2023-06-12 05:33] LABS: Hematocrit (blood only) 40.3 % (37.0-47.0); Hemoglobin 13.1 g/dl (12.0-16.0); Mean Corpuscular Hemoglobin 28.2 pg (25.0-34.0); Mean Corpuscular Hgb Conc 32.5 g/dL (32.0-36.0); Mean Corpuscular Volume 86.9 fL (80.0-100.0); Mean Platelet Volume 9.9 fL (9.4-12.4); Platelet Count 349 K/uL (130-400); RDW Coefficient of Variation 13.6 % (11.5-14.5); RDW Standard Deviation 42.6 fL (36.4-46.3); Red Blood Count 4.64 M/uL (4.20-5.40); White Blood Count 16.96 K/ul (4.8-10.8)
[2023-06-12 05:47] LABS: BUN Creatinine Ratio 25.4 (10-20); Calcium 9.1 mg/dl (8.6-10.3); Creatinine Clr Calc Pharmacy 148.8 ml/min; Est GFR (African American) 141.6 ml/min; Est GFR (Non-African American) 122.2 ml/min; Magnesium 1.9 mg/dl (1.7-2.4); Potassium 4.3 mmol/L (3.5-5.1)
[2023-06-12] MEDS: ACETAMINOPHEN 500 MG TAB PO PRN (07:52)
[2023-06-12] MEDS: BENZONATATE 100 MG CAPSULE PO SCH ×3 (07:53→20:48)
[2023-06-12] MEDS: guaiFENesin 600 MG TABCR PO SCH ×2 (07:53→20:48)
[2023-06-12] MEDS: FLUoxetine HCL 20 MG CAP PO SCH (07:53)
[2023-06-12] MEDS: busPIRone 5 MG TAB PO SCH ×2 (07:53→20:48)
[2023-06-12] MEDS: FLUTICASONE/VILANTEROL 200/25MCG 14 PUFFS/INHALER INH SCH (07:53)
[2023-06-12] MEDS: ALBUTEROL 0.083% NEBU SOLN 3 ML VIAL NEB PRN ×2 (08:01→14:23)
[2023-06-12] MEDS ORDERED: SODIUM CHLORIDE 0.65% NA SOLN 45 ML (OCEAN) PRN (08:21)
--- NOTE | 2023-06-12 15:39 | Hospitalist Progress Note ---
Date of Service June 12, 2023 Assessment & Plan (1) Asthma exacerbation: (2) Rhinovirus infection: Plan 27-year-old female with PMH of asthma, irritable bowel syndrome, celiac disease who reports she has been using rescue inhaler almost daily for more than a year came in with complaint of increasing shortness of breath and dry cough for the last few days prior to arrival. She is being managed for the following: Asthma exacerbation: Rhinovirus UTI: History of asthma with occasional exacerbation controlled with use of albuterol inhalers Has been complaining of worsening of symptoms for the last 2 days [employer] Desaturation with activity in the emergency room and also increasing shortness of breath and wheezing RTC and as needed nebs, continue with Solu-Medrol, MARITA budesonide/formeterol Symptomatic management for rhinovirus infection. Pulmonology consult if not improving. Pulmonology follow-up and PFT testing upon discharge. Taper down steroid likely lori. Rhinovirus infection: Observe in the hospital IBS (irritable bowel syndrome): No acute issues Celiac disease: Denies any symptoms DVT prophylaxis: lovenox sc CODE STATUS: Full Admission and Anticipated Discharge Date Admission Date: June 11, 2023 Subjective Patient was seen and examined at bedside. Patient was lying in bed, on 2 L oxygen via nasal cannula, resting comfortably, not in any acute distress. Patient reports eating okay and moving bowels okay, denies any new acute event overnight. Patient reports improving cough, breathing getting better. Physical Exam Physical Exam: GENERAL: Alert and oriented x3. NAD, on 2L oxygen via nasal cannula. Obese class III. HEENT: No pallor, no icterus. Pupils equal, round and reactive to light. Oral mucosa moist. NECK: No JVD, no neck masses. HEART: S1 and S2 heard. Regular rate and rhythm. No murmur, no gallop. RESPIRATORY SYSTEM: Normal AP diameter. No accessory muscle use. bl wheezing, occ crackles. ABDOMEN: Soft, bowel sounds present, nontender, no distention. CENTRAL NERVOUS SYSTEM: No facial droop. Speech is clear. Obeys simple commands. Moves extremities. EXTREMITIES: No edema, no erythema seen. Results & Data Results & Data Vital Signs (Past 12 Hours) Vital Signs Temp Pulse Pulse Resp BP Pulse Ox Pulse Ox 06/12/23 14:23 101 H 20 92 06/12/23 11:52 37.0 C 87 16 107/71 93 06/12/23 08:25 37.0 C 89 16 106/72 95 06/12/23 08:01 89 18 95 06/12/23 08:00 80 06/12/23 07:35 06/12/23 06:00 94 06/12/23 04:01 36.6 C 73 20 98/57 L 94 O2 Del Method O2 Del Method O2 Flow Rate O2 Flow Rate 06/12/23 14:23 Nasal Cannula 2 06/12/23 11:52 Room Air 06/12/23 08:25 Nasal Cannula 2 06/12/23 08:01 Nasal Cannula 2 06/12/23 08:00 06/12/23 07:35 Nasal Cannula 2 06/12/23 06:00 Nasal Cannula 2 06/12/23 04:01 Nasal Cannula 2
[2023-06-12] MEDS: ALBUTEROL HFA 8 GM INHALER INH PRN (20:47)
[2023-06-12] MEDS: ENOXAPARIN INJ 40 MG/0.4 ML SYR SQ SCH (20:48)
[2023-06-12] MEDS: PRENATAL VITAMIN 1 TAB PO SCH (20:48)
[2023-06-13] MEDS: methylPREDNISolone 40 MG in SYRINGE 0 ML IV SCH ×2 (02:49→20:53)
[2023-06-13 04:59] LABS: Hematocrit (blood only) 38.7 % (37.0-47.0); Hemoglobin 13.1 g/dl (12.0-16.0); Mean Corpuscular Hemoglobin 28.5 pg (25.0-34.0); Mean Corpuscular Hgb Conc 33.9 g/dL (32.0-36.0); Mean Corpuscular Volume 84.1 fL (80.0-100.0); Mean Platelet Volume 9.8 fL (9.4-12.4); Platelet Count 350 K/uL (130-400); RDW Coefficient of Variation 13.2 % (11.5-14.5); RDW Standard Deviation 40.5 fL (36.4-46.3); White Blood Count 16.51 K/ul (4.8-10.8)
[2023-06-13 05:18] LABS: Anion Gap 7 (3-11); BUN Creatinine Ratio 26.8 (10-20); Blood Urea Nitrogen 15 mg/dl (6-23); Calcium 8.7 mg/dl (8.6-10.3); Carbon Dioxide 24 mmol/L (21-32); Chloride 105 mmol/L (98-107); Creatinine Clr Calc Pharmacy 177.5 ml/min; Est GFR (African American) > 150.0 ml/min; Est GFR (Non-African American) 129.6 ml/min; Glucose 117 mg/dl (70-99(Fasting)); Sodium 136 mmol/L (136-145)
[2023-06-13] MEDS: BENZONATATE 100 MG CAPSULE PO SCH ×3 (09:26→20:53)
[2023-06-13] MEDS: busPIRone 5 MG TAB PO SCH ×2 (09:27→20:53)
[2023-06-13] MEDS: FLUoxetine HCL 20 MG CAP PO SCH (09:27)
[2023-06-13] MEDS: FLUTICASONE/VILANTEROL 200/25MCG 14 PUFFS/INHALER INH SCH (09:27)
[2023-06-13] MEDS: guaiFENesin 600 MG TABCR PO SCH ×2 (09:27→20:53)
[2023-06-13] MEDS: ALBUTEROL 0.083% NEBU SOLN 3 ML VIAL NEB PRN (09:40)
[2023-06-13] MEDS: ACETAMINOPHEN 500 MG TAB PO PRN (12:32)
--- NOTE | 2023-06-13 15:32 | Hospitalist Progress Note ---
Date of Service June 13, 2023 Assessment & Plan (1) Asthma exacerbation: (2) Rhinovirus infection: Plan 27-year-old female with PMH of asthma, irritable bowel syndrome, celiac disease who reports she has been using rescue inhaler almost daily for more than a year came in with complaint of increasing shortness of breath and dry cough for the last few days prior to arrival. 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 Pulmonology follow-up and PFT testing upon discharge. Solu M to QD likely in AM, then possible dc if continued improvement Rhinovirus infection: Observe , symptomatic management. IBS (irritable bowel syndrome): No acute issues Celiac disease: Denies any symptoms DVT prophylaxis: lovenox sc CODE STATUS: Full Admission and Anticipated Discharge Date Admission Date: June 11, 2023 Subjective Patient was seen and examined at bedside. Patient was lying in bed, on RA, resting comfortably, not in any acute distress. Patient reports eating okay and moving bowels okay, denies any new acute event overnight. Patient reports feeling better but still some chest tightness and wheezing, improving cough now. Physical Exam Physical Exam: GENERAL: Alert and oriented x3. NAD, on RA. Obese class III. HEENT: No pallor, no icterus. Pupils equal, round and reactive to light. Oral mucosa moist. NECK: No JVD, no neck masses. HEART: S1 and S2 heard. Regular rate and rhythm. No murmur, no gallop. RESPIRATORY SYSTEM: Normal AP diameter. No accessory muscle use. bl wheezing, occ crackles. ABDOMEN: Soft, bowel sounds present, nontender, no distention. CENTRAL NERVOUS SYSTEM: No facial droop. Speech is clear. Obeys simple commands. Moves extremities. EXTREMITIES: No edema, no erythema seen. Results & Data Results & Data Vital Signs (Past 12 Hours) Vital Signs Temp Pulse Pulse Resp BP Pulse Ox Pulse Ox 06/13/23 14:55 95 H 06/13/23 11:17 37.1 C 103 H 18 98/64 L 91 06/13/23 09:41 66 18 94 06/13/23 09:38 06/13/23 09:00 76 06/13/23 07:55 37.0 C 86 18 115/57 L 92 06/13/23 06:00 93 O2 Del Method O2 Del Method 06/13/23 14:55 06/13/23 11:17 Room Air 06/13/23 09:41 Room Air 06/13/23 09:38 Room Air 06/13/23 09:00 06/13/23 07:55 Room Air 06/13/23 06:00 Room Air
[2023-06-13] MEDS: ENOXAPARIN INJ 40 MG/0.4 ML SYR SQ SCH (20:52)
[2023-06-13] MEDS: ALBUTEROL HFA 8 GM INHALER INH PRN (20:53)
[2023-06-13] MEDS: PRENATAL VITAMIN 1 TAB PO SCH (20:53)
[2023-06-14 05:39] LABS: Anion Gap 5 (3-11); BUN Creatinine Ratio 25.5 (10-20); Blood Urea Nitrogen 14 mg/dl (6-23); Calcium 8.7 mg/dl (8.6-10.3); Carbon Dioxide 26 mmol/L (21-32); Chloride 103 mmol/L (98-107); Creatinine Clr Calc Pharmacy 180.8 ml/min; Est GFR (African American) > 150.0 ml/min; Est GFR (Non-African American) 130.4 ml/min; Glucose 129 mg/dl (70-99(Fasting)); Magnesium 1.9 mg/dl (1.7-2.4); Potassium 4.5 mmol/L (3.5-5.1); Sodium 134 mmol/L (136-145)
[2023-06-14 05:46] LABS: Hematocrit (blood only) 42.9 % (37.0-47.0); Mean Corpuscular Hemoglobin 28.2 pg (25.0-34.0); Mean Corpuscular Hgb Conc 32.6 g/dL (32.0-36.0); Mean Corpuscular Volume 86.3 fL (80.0-100.0); Mean Platelet Volume 9.9 fL (9.4-12.4); Platelet Count 364 K/uL (130-400); RDW Coefficient of Variation 13.2 % (11.5-14.5); RDW Standard Deviation 41.3 fL (36.4-46.3); Red Blood Count 4.97 M/uL (4.20-5.40); White Blood Count 13.34 K/ul (4.8-10.8)
[2023-06-14] MEDS: guaiFENesin 600 MG TABCR PO SCH (09:19)
[2023-06-14] MEDS: FLUTICASONE/VILANTEROL 200/25MCG 14 PUFFS/INHALER INH SCH (09:19)
[2023-06-14] MEDS: busPIRone 5 MG TAB PO SCH (09:19)
[2023-06-14] MEDS: FLUoxetine HCL 20 MG CAP PO SCH (09:20)
[2023-06-14] MEDS: BENZONATATE 100 MG CAPSULE PO SCH ×2 (09:20→13:32)
[2023-06-14] MEDS: methylPREDNISolone 40 MG in SYRINGE 0 ML IV SCH (09:22)
--- NOTE | 2023-06-14 12:18 | Discharge Summary ---
Date of Service June 14, 2023 Admission HPI Per Admitting Provider She is a 27-year-old female significant past medical history of asthma, atrial bowel syndrome , celiac disease apparently has been complaining of cough, runny nose with increasing shortness of breath and wheezing for the last 2 days. No fever or chills and has cough without any productive sputum. Denies any nausea no vomiting, denies any chest pain and/or palpitation. Gets easily short of breath with wheezing with minimal exertion. Noted to have moderate shortness of breath wheezing at rest in the emergency room and desaturated with minimal exertion. Received nebulized bronchodilator and intravenous Solu-Medrol and was admitted to med/telemetry unit for continuation of care. Admission Exam Per Admitting Provider Physical Exam: Lying in bed with minimal distress due to shortness of breath and wheezing Constitutional: well developed, well nourished, + ill appearing and + obese Eyes: PERRL, conjunctivae normal, anicteric sclerae ENMT: external ear and nose normal, oropharynx normal Neck: trachea midline, no thyromegaly Respiratory: no respiratory distress Auscultation: + diminished lung sounds and + wheezes (Moderate wheezing bilateral) Cardiovascular: Rate/Rhythm: regular rate, regular rhythm and + tachycardic Heart Sounds: normal S1 and normal S2; no murmur Extremities: no edema Gastrointestinal (Abdomen): Inspection/Auscultation: normal bowel sounds; abdomen not distended Percussion/Palpation: abdomen soft; abdomen nontender Musculoskeletal: No acute arthritis involving any of the joint Neurologic: normal touch/pain/proprioception and moves all extremities; no focal motor deficits Psychiatric: A+Ox3, euthymic affect Lymphatic: no cervical or axillary lymphadenopathy Principal Diagnosis Asthma exacerbation Rhinovirus URTI Discharge Exam GENERAL: Alert and oriented x3. NAD, on RA. Obese class III. HEENT: No pallor, no icterus. Pupils equal, round and reactive to light. Oral mucosa moist. NECK: No JVD, no neck masses. HEART: S1 and S2 heard. Regular rate and rhythm. No murmur, no gallop. RESPIRATORY SYSTEM: Normal AP diameter. No accessory muscle use. no wheezing. no crackles. ABDOMEN: Soft, bowel sounds present, nontender, no distention. CENTRAL NERVOUS SYSTEM: No facial droop. Speech is clear. Obeys simple commands. Moves extremities. EXTREMITIES: No edema, no erythema seen. Discharge Data Allergies Allergy/AdvReac Type Severity Reaction Status Date / Time ragweed pollen Allergy Unknown POSITIVE Verified 06/08/23 08:29 ALLERGY TEST gluten Allergy CELIAC Verified 06/08/23 08:29 DISEASE Egg Derived AdvReac Intermediate UPSET Verified 06/08/23 08:29 STOMACH Consultations 06/10/23 10:38 ED Decision to Admit Stat Hospital Course (1) Asthma exacerbation: (2) Rhinovirus infection: Plan 27-year-old female with PMH of asthma, irritable bowel syndrome, celiac disease who reports she has been using rescue inhaler almost daily for more than a year came in with complaint of increasing shortness of breath and dry cough for the last few days prior to arrival. 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 Cough medications to ease cough likely secondary to viral URTI Pulmonology follow-up and PFT testing upon discharge. Patient has been made aware. Patient reports feeling better/near her baseline and would like to go home today. Rhinovirus infection: symptomatic management. IBS (irritable bowel syndrome): No acute issues Celiac disease: Denies any symptoms DVT prophylaxis: lovenox sc CODE STATUS: Full Patient is being discharged home with following instruction at the point of discharge: Follow-up with your primary care physician within a week time and likely you will need labs CBC/CMP/magnesium/phosphorus. For your asthma exacerbation, you will be discharged on oral steroid and scheduled inhalational medication. Establish and follow-up with pulmonology as an outpatient, you will need lung function testing in about 6 weeks time. Take your medications as prescribed. Please make sure that you are able to get your medications today by calling your pharmacy before you leave the hospital so that your treatment continuity is not broken. [facility] Attestation I certify that this patient is under my care and that I, or a physicians application assistant working with me, had a face to-face encounter that meets the [id number] encounter requirements with this patient. The encounter with the patient was in whole, or in part, for the following medical condition, which is the primary reason for home health care (list medical condition): I certify that, based on my findings, the following services are medically necessary home health services: My clinical findings support the need for the above services because: Further, I certify that my clinical findings support that this patient is homebound (i.e. absences from home require considerable and taxing effort and are for medical reasons or sikh services or infrequently or of short duration when for other reasons) because: Certification for Home Health Services: Based on the above findings, I certify that this patient is confined to the home and needs intermittent mcc care, physical therapy and/or speech therapy or continues to need occupational therapy. The patient is under my care, and I have initiated the establishment of the plan of care. This patient will be followed by a physician who will periodically review the plan of care. Total Time Total Time Spent Total Time Spent (In Minutes): 45 Discharge Plan Discharge Items Patient Disposition: Home - Self-Care Reason For Visit: ASTHMA EXACERBATION Discharge Diagnosis: Asthma exacerbation Rhinovirus URTI Activity: Resume your previous activity Non-emergency contact: Primary Care Provider Call non-emergency contact if: you have any medication questions, your symptoms worsen and your temperature is above 101.5 Follow-up/Referrals: Jorge Ken MD [Primary Care Provider] - Diet: Regular and Gluten Free Addtl Attending Provider Instructions: Follow-up with your primary care physician within a week time and likely you will need labs CBC/CMP/magnesium/phosphorus. For your asthma exacerbation, you will be discharged on oral steroid and scheduled inhalational medication. Establish and follow-up with pulmonology as an outpatient, you will need lung function testing in about 6 weeks time. Take your medications as prescribed. Please make sure that you are able to get your medications today by calling your pharmacy before you leave the hospital so that your treatment continuity is not broken. Pending Studies at Discharge: No Stand-Alone Forms: My [employer], Smoking Cessation Medications and DC Order Prescriptions: New benzonatate 100 mg Capsule 100 mg PO TID 5 Days Qty: 15 0RF fluticasone furoate-vilanterol [Breo Ellipta] 200-25 mcg/dose Blister With Device 1 inh inhalation DAILY Qty: 60 0RF guaifenesin [Mucinex] 600 mg Tablet Extended Release 12hr 1,200 mg PO Q12 5 Days Qty: 20 0RF prednisone 20 mg tablet 20 mg PO UD Qty: 11 0RF Rx Instructions: 40 mg daily for 4 days, then 20 mg daily for 3 days. famotidine 20 mg tablet 20 mg PO DAILY 7 Days Qty: 7 0RF Rx Instructions: Daily for the duration of steroid use for asthma exacerbation. Continued albuterol sulfate 90 mcg/actuation HFA aerosol inhaler 2 puff inhalation Q6H PRN (Reason: Shortness Of Breath Or Wheezing) fexofenadine [Tamela Allergy] 180 mg tablet 180 mg PO DAILY PRN (Reason: Congestion) buspirone 10 mg tablet 10 mg PO BID prenat.vits,jenise,oov-pjyf-riphb Tablet 1 tab PO QPM fluoxetine [Prozac] 20 mg capsule 20 mg PO QAM Discharge Orders: Discharge Order (Routine); Ordered 06/14/23 Ordered By: Hever Tilley Admission Data Admit Date/Time: 06/11/23 12:09 Attending Provider: Hever Tilley Admit Provider: Marco A Wade Primary Care Provider: Jorge Ken Other Providers: Marco A Wade
--- NOTE | 2023-06-16 13:55 | Coding Query ---
CODING QUERY To promote full compliance with coding requirements relating to patient care, provider participation is requested in all cases of ghost writer uncertainty. Please assist us with the question(s) below: Coding Question(s): The ER documents, "She is 8 weeks ". There is no further documentation in the record of . Please specify below, regarding during this admission: ( x ) 8 weeks at admission ( ) No during admission Physician's Response(s): Thank you Marylu Jimenes Principal Diagnosis: "that condition established after study, to be chiefly responsible for occasioning the admission of the patient to the hospital for care." Co-Existing Principal Diagnosis: "when two or more diagnoses equally meet the criteria for principal diagnosis as determined by the circumstances of admission, diagnostic work up, and/or therapy provided, and the Alphabetic Index, Tabular List, or another coding guideline does not provide sequencing direction, any one of the diagnoses may be sequenced first." "When the physician has documented what appears to be a current diagnosis in the body of the record, but has not included the diagnosis in the final diagnostic statement, the physician should be asked whether the diagnosis should be added." (Source Coding Clinic 2 QTR90. p3-4) ALEXA
== END 2023-06-14 14:38 | disposition home or self-care (01) | DRG 832 ==
LOC: ED 05:10 → 2W 05:10 → SUATTDRO 11:00 → 2W 12:43

== ENCOUNTER 2023-12-22 01:18 | Inpatient (IN) ==
[2023-12-22] MEDS ORDERED: LIDOCAINE 1% LOCAL 20 ML VIAL INFIL PRN (05:12)
[2023-12-22] MEDS ORDERED: CALCIUM CARBONATE 500 MG CHEWABLE TAB PO PRN (05:12)
[2023-12-22] MEDS ORDERED: OXYTOCIN 30 UNITS/NSS 30 UNITS/500 ML BAG IV PRN ×2 (05:12→17:23)
[2023-12-22] MEDS ORDERED: ACETAMINOPHEN 325 MG TAB PO PRN ×2 (05:12→17:23)
[2023-12-22] MEDS ORDERED: ALBUTEROL HFA 8 GM INHALER INH PRN (05:15)
[2023-12-22] MEDS: PENICILLIN GK 6 MU in DEXTROSE 5% 250 ML IV STA (05:51)
[2023-12-22] MEDS: LACTATED RINGER'S 1,000 ML IV PRN (05:51)
[2023-12-22 06:02] LABS: Hematocrit (blood only) 38.3 % (37.0-47.0); Hemoglobin 12.7 g/dl (12.0-16.0); Mean Corpuscular Hemoglobin 28.2 pg (25.0-34.0); Mean Corpuscular Hgb Conc 33.2 g/dL (32.0-36.0); Mean Corpuscular Volume 84.9 fL (80.0-100.0); Platelet Count 230 K/uL (130-400); RDW Coefficient of Variation 14.8 % (11.5-14.5); RDW Standard Deviation 45.1 fL (36.4-46.3); Red Blood Count 4.51 M/uL (4.20-5.40); White Blood Count 10.25 K/ul (4.8-10.8)
--- NOTE | 2023-12-22 06:34 | History & Physical Report ---
Date of Service December 22, 2023 Assessment & Plan (1) IUGR (intrauterine growth restriction) affecting care of mother: Plan: IUP at 36 weeks with grossly ruptured membranes and GBS positive. Will begin penicillin prophylaxis and begin Pitocin augmentation if necessary. Epidural when requested. Anticipate vaginal . Admission and Anticipated Discharge Date Admission Date: December 22, 2023 History of Present Illness Primary Care Provider: Jorge Ken MD Patient is a 28-year-old G [id number] female EDC of 01/18/2024 who presented with spontaneous rupture of membranes. This occurred at approximately 2 AM. She initially had some contractions but they apparently spaced out upon arrival in labor and delivery. She was noted to be grossly ruptured for clear fluid. GBS is positive. has been complicated by IUGR and polyhydramnios. testing has been reassuring. Allergies Allergy/AdvReac Type Severity Reaction Status Date / Time ragweed pollen Allergy Unknown POSITIVE Verified 12/17/23 15:31 ALLERGY TEST gluten Allergy CELIAC Verified 12/17/23 15:31 DISEASE Egg Derived AdvReac Intermediate UPSET Verified 12/17/23 15:31 STOMACH Home Medications Medication Instructions Recorded Confirmed Type albuterol sulfate 90 mcg/actuation 2 puff inhalation Q6H PRN 07/01/21 12/22/23 History aerosol inhaler Shortness Of Breath Or Wheezing prenat.vits,jenise,aci-vyqr-tcaee 1 tab PO QPM 10/16/21 12/22/23 History buspirone 10 mg tablet 10 mg PO BID 02/11/23 12/22/23 History fluoxetine 20 mg capsule (Prozac) 20 mg PO QAM 03/10/23 12/22/23 History fluticasone furoate 200 1 inh inhalation DAILY #60 ea 06/14/23 12/22/23 Rx mcg-vilanterol 25 mcg/dose inhalation powder (Breo Ellipta) loratadine 10 mg tablet (Claritin) 10 mg PO DAILY 11/10/23 12/22/23 History Patient History Medical History History of gastric ulcer Ovarian cyst removed 03-20 IBS (irritable bowel syndrome) GERD (gastroesophageal reflux disease) Anxiety and depression TMJ click Fibromyalgia Asthma uses PRN inh daily Surgical History S/P ovarian cystectomy bilateral dermoids 02/2023 History of esophagogastroduodenoscopy (EGD) 07/05/17; 01/24/20 Family History Father Autoimmune hepatitis Arthritis Eczema Hypertension Mother Hypertension Unknown Breast cancer Other No family history of adverse response to anesthesia Denies family history of Ovarian cancer Lung cancer Colorectal cancer Social History Smoking Status: Never smoker Second Hand Exposure: No; Do You Dip or Chew Tobacco: No; Hx Alcohol Use: No Hx Substance Use: No Preferred Language: Maltese Communication Ability: Effective Visual Impairment: No Limitations 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 Beliefs That Will Affect Care: None marital status: marital status details: Engaged to Cody Garcia (26) [phone] Current Living Situation: Family Current Living Situation Comment: Cody (), Garrick Erickson current occupational status: employed current occupation: [employer] Other Information That Helps Us Care for You: No Feels Safe at Home: Yes Safety Concerns: Feels Safe At This Time Assistive Devices: None Review of Systems All systems reviewed & are unremarkable except as noted in HPI & below Physical Exam Constitutional: WD/WN, vitals as above Psychiatric: A+Ox3, euthymic affect Genitourinary: OB Exam Abdomen: + vertex and + irregular contractions Manual OB Exam: + cervical dilation 2 cm, + cervical effacement 50%, + station - 2 and + amniotic fluid (forebag present) clear and nitrazine positive OB Exam Monitor Tracing: + external FHT monitor used, + external uterine monitor used, + category I and + normal FHT variability Results & Data Vital Signs (Past 12 Hours) Vital Signs Temp Pulse Resp BP 12/22/23 03:47 94 H 118/77 12/22/23 03:45 20 12/22/23 03:45 98.4 F 20 12/22/23 02:02 88 103/70 12/22/23 01:57 98.2 F 16 Code Status & VTE Plan VTE Prophylaxis Plan VTE Prophylaxis will be ordered: No Coding Level of Care Code None Diagnoses IUGR (intrauterine growth restriction) affecting care of mother O36.5990
[2023-12-22] MEDS: FLUTICASONE/VILANTEROL 200/25MCG 14 PUFFS/INHALER INH SCH (09:35)
[2023-12-22] MEDS: busPIRone 5 MG TAB PO SCH (09:35)
[2023-12-22] MEDS: FLUoxetine HCL 20 MG CAP PO SCH (09:35)
[2023-12-22] MEDS: LORATADINE 10 MG TAB PO SCH (09:36)
[2023-12-22] MEDS: PENICILLIN GK 3 MU in DEXTROSE 5% 100 ML IV PRN (10:01)
[2023-12-22] MEDS: LIDOCAINE 2%/EPINEPHRINE 1:200,000 20 ML PF ONE (13:21)
[2023-12-22] MEDS: fentANYL 2 MCG/ML BUPIVacaine 0.125%-NSS 100ML BAG ONE (13:21)
[2023-12-22] MEDS: fentaNYL citrate PF 100 MCG/2 ML VIAL ONE (13:29)
[2023-12-22] MEDS: SODIUM CHLORIDE 0.9% PF INJ 10 ML VIAL ONE (13:29)
[2023-12-22] MEDS: BUPIVACAINE 0.25% PF 30 ML VIAL ONE (13:29)
[2023-12-22] MEDS: OXYTOCIN 30 UNITS/NSS 30 UNITS/500 ML BAG IV PRN (13:36)
--- NOTE | 2023-12-22 13:36 | Anesthesiology Consultation ---
Date of Service December 22, 2023 Assessment & Plan Chart Review Chart Review: Acceptable Risk for Labor Epidural Consults Requested none History Height/Weight Height: 5 ft 3 in Weight: 104.326 kg Allergies Allergy/AdvReac Type Severity Reaction Status Date / Time ragweed pollen Allergy Unknown POSITIVE Verified 12/17/23 15:31 ALLERGY TEST gluten Allergy CELIAC Verified 12/17/23 15:31 DISEASE Egg Derived AdvReac Intermediate UPSET Verified 12/17/23 15:31 STOMACH Medications Home Medications Medication Instructions Recorded Confirmed Last Taken albuterol sulfate 90 mcg/actuation 2 puff inhalation Q6H PRN 07/01/21 12/22/23 1 Week Ago aerosol inhaler Shortness Of Breath Or Wheezing ~12/15/23 prenat.vits,jenise,iei-mgbs-gajey 1 tab PO QPM 10/16/21 12/22/23 1 Day Ago ~12/21/23 buspirone 10 mg tablet 10 mg PO BID 02/11/23 12/22/23 2 Days Ago ~12/20/23 fluoxetine 20 mg capsule (Prozac) 20 mg PO QAM 03/10/23 12/22/23 2 Days Ago ~12/20/23 fluticasone furoate 200 1 inh inhalation DAILY #60 ea 06/14/23 12/22/23 2 Days Ago mcg-vilanterol 25 mcg/dose ~12/20/23 inhalation powder (Breo Ellipta) loratadine 10 mg tablet (Claritin) 10 mg PO DAILY 11/10/23 12/22/23 1 Day Ago ~12/21/23 Active Medications Generic Name Dose Route Start Last Admin Trade Name Freq PRN Reason Stop Dose Admin Buspirone HCl 10 mg 12/22/23 09:00 12/22/23 09:35 Buspirone 5 Mg Tab PO 01/21/24 08:59 Not Given BID MARITA Fluoxetine HCl 20 mg 12/22/23 09:00 12/22/23 09:35 Fluoxetine Hcl 20 Mg Cap PO 01/21/24 08:59 Not Given QAM MARITA Fluticasone/Vilanterol 1 puffs 12/22/23 09:00 12/22/23 09:35 Fluticasone/Vilanterol 200/25mcg 14 Puffs/Inhaler INH 01/21/24 08:59 Not Given DAILY MARITA Lactated Ringer's 1,000 mls @ 125 mls/hr 12/22/23 05:12 12/22/23 13:05 Lr IV 12/24/23 05:11 125 mls/hr .Q8H PRN Infusion L&D Protocol Protocol Penicillin G Potassium 3 mu/ 106 mls @ 100 mls/hr 12/22/23 08:12 12/22/23 11:05 Dextrose IV 01/01/24 08:11 Infused Q4H PRN Infusion GBS(+) Until Delivery Loratadine 10 mg 12/22/23 09:00 12/22/23 09:36 Loratadine 10 Mg Tab PO 01/21/24 08:59 Not Given DAILY MARITA Past Medical History Medical History History of gastric ulcer Ovarian cyst removed 03-20 IBS (irritable bowel syndrome) GERD (gastroesophageal reflux disease) Anxiety and depression TMJ click Fibromyalgia Asthma uses PRN inh daily Past Family History Family History Father Autoimmune hepatitis Arthritis Eczema Hypertension Mother Hypertension Unknown Breast cancer Other No family history of adverse response to anesthesia Denies family history of Ovarian cancer Lung cancer Colorectal cancer Past Surgical History Surgical History S/P ovarian cystectomy bilateral dermoids 02/2023 History of esophagogastroduodenoscopy (EGD) 07/05/17; 01/24/20 Social History Smoking Status: Never smoker Do You Dip or Chew Tobacco: No Hx Alcohol Use: No alcohol intake frequency: holidays/special occasions only Hx Substance Use: No substance use type: does not use Physical Exam Vital Signs Last Vital Signs Temp 37.0 C 12/22/23 11:00 Pulse 92 H 12/22/23 13:34 Resp 18 12/22/23 11:00 BP 101/50 L 12/22/23 13:34 Pulse Ox 99 12/22/23 13:31 Testing Laboratory Results 12/22/23 05:23 Blood Type A Negative 12/22/23 05:23 Antibody Screen NEGATIVE 12/22/23 05:23
[2023-12-22] MEDS ORDERED: ePHEDrine sulfate 50 MG/ML AMP IV PRN (13:37)
[2023-12-22] MEDS ORDERED: LIDOCAINE 2% MPF LOCAL 5 ML VIAL EPI PRN (13:37)
[2023-12-22] MEDS ORDERED: fentaNYL citrate PF 100 MCG/2 ML VIAL EPI PRN (13:37)
[2023-12-22] MEDS ORDERED: fentANYL 2 MCG/ML BUPIVacaine 0.125%-NSS 100ML BAG EPI PRN (13:37)
[2023-12-22] MEDS ORDERED: SODIUM CHLORIDE 0.9% PF INJ 10 ML VIAL EPI PRN (13:37)
[2023-12-22] MEDS ORDERED: BUPIVACAINE 0.25% PF 30 ML VIAL EPI PRN (13:37)
[2023-12-22] MEDS ORDERED: NALBUPHINE HCL 5 MG in SYRINGE 0 ML IV PRN (13:37)
[2023-12-22] MEDS ORDERED: NALOXONE HCL 1 MG in SODIUM CHLORIDE 0.9% 1,000 ML IV PRN (13:37)
[2023-12-22] MEDS ORDERED: NALOXONE HCL 0.4 MG/1 ML VIAL/CARP IV PRN (13:37)
[2023-12-22] MEDS ORDERED: diphenhydrAMINE 50 MG/ML VIAL IV PRN (13:37)
[2023-12-22] MEDS ORDERED: ROPIVACAINE 0.5% PF 5 MG/ML 20 ML VIAL EPI PRN (13:37)
[2023-12-22] MEDS: fentaNYL citrate PF 100 MCG/2 ML VIAL EPI STA (14:24)
[2023-12-22] MEDS: SODIUM CHLORIDE 0.9% PF INJ 10 ML VIAL EPI STA (14:24)
[2023-12-22] MEDS: LIDOCAINE 2%/EPINEPHRINE 1:200,000 20 ML PF EPI STA (14:24)
[2023-12-22] MEDS: BUPIVACAINE 0.25% PF 30 ML VIAL EPI STA (14:24)
--- NOTE | 2023-12-22 17:11 | Delivery Summary ---
Vaginal Delivery Summary Date of Service December 22, 2023 Vaginal Delivery Summary [facility] Vaginal Delivery Summary: Pre-delivery diagnoses: 28yo @ 36 07/04, SROM, IUGR, Rh negative, polyhydramnios Post-delivery diagnoses: same Procedure: spontaneous vaginal delivery Surgeon: Kirsty Cordero DO Complications: none Findings: Viable female . Apgars: 9/9. Weight pending, please see nursery records Estimated QBL: 96 Description of delivery: The patient progressed to complete with epidural anesthesia. She then began to push. She spontaneously vaginally delivered a viable from the cephalic presentation. The head delivered in VICENTA position. The anterior shoulder delivered, followed by the posterior shoulder, followed by the body. The baby was placed on mother's abdomen and a spontaneous cry was heard. Delayed cord clamping was employed, and the cord was doubly clamped and cut. Cord blood was obtained. The placenta was delivered spontaneously intact with a 3-vessel cord. The uterus and vagina were swept of clots and debris. IV pitocin was given. The uterus became firm. The cervix, vagina, and perineum were inspected and no lacerations were noted. Excellent hemostasis was observed. The mother and baby are recovering in stable and good condition in the room. Sponge and instrument counts were correct x 2. Kirsty [facility]ordero DO [facility] Vag[facility] Delivery Charge Vaginal Delivery Codes: 91884 global code for the antepartum, delivery, and post- Delivery Type Details: [facility]
[2023-12-22] MEDS ORDERED: oxyCODONE/ACETAMINOPHEN 5mg/325mg TAB PO PRN (17:23)
[2023-12-22] MEDS ORDERED: bisacodyL 10 MG SUPP PR PRN (17:23)
[2023-12-22] MEDS ORDERED: HYDROCORTISONE ACETATE 25 MG SUPP PR PRN (17:23)
[2023-12-22] MEDS: ePHEDrine sulfate 50 MG/ML AMP ONE (17:37)
[2023-12-22] MEDS: DIPHTHER/TETAN/PERTUS Vaccine (Tdap, Adol/Adult) 0.5mL IM ONE (17:40)
[2023-12-22] MEDS: IBUPROFEN 600 MG TAB PO PRN (19:17)
[2023-12-22] MEDS: BENZOCAINE 20% SPRY 85 APPLN/85 GM CAN EXT PRN (19:17)
--- NOTE | 2023-12-22 19:26 | Anesthesia Procedure Note ---
Date of Service December 22, 2023 Anesthesia Post Epidural Note Vital Signs Vital Signs: Temp Pulse Resp BP Pulse Ox 37.1 C 101 H 20 116/70 98 12/22/23 18:05 12/22/23 19:21 12/22/23 18:05 12/22/23 19:21 12/22/23 17:01 Notes Mental Status: alert / awake / arousable Nausea / Vomiting: adequately controlled Pain: adequately controlled Airway Patency, RR, SpO2: stable & adequate BP & HR: stable & adequate Hydration State: stable & adequate Neuraxial Anesthesia: was administered and sensory block is resolving Anesthetic Complications: no major complications apparent and Pt Satisfied with anesthetic care Epidural: Removed without complications and With tip intact
[2023-12-22] MEDS: DOCUSATE SODIUM 100 MG CAP PO SCH (21:24)
--- NOTE | 2023-12-23 06:07 | Obstetrical Progress Note ---
Date of Service <Papi Najera DO - Last Filed: 12/23/23 06:09> December 23, 2023 Assessment & Plan <Papi Najera DO - Last Filed: 12/23/23 06:09> (1) Encounter for assessment: Plan 28 y/o PPD#1: Eating well, voiding well, ambulating well Vitals reviewed, WNL Pain well controlled with Motrin Routine post care - OOB, ambulation, diet progression as tolerated Will have 6 week follow up with Dr. Cordero <Kirsty Cordero, - Last Filed: 12/23/23 08:51> (1) Encounter for assessment: Subjective <Papi Najera DO - Last Filed: 12/23/23 06:09> Ambulation: ambulating normally Voiding: no voiding problems Diet Tolerance:: regular diet Lochia:: Moderate Feeding Type:: breast feeding pain well controlled with Motrin Review of Systems -Denies fever or chills -Denies dyspnea, chest pain, or palpitations -Denies dysuria -Denies headache or changes in vision Physical Exam <Papi Najera DO - Last Filed: 12/23/23 06:09> General: Alert and oriented. No acute distress Cardiac: Regular rate and rhythm, no murmurs appreciated Respiratory: Lungs clear to auscultation bilaterally, No increased work of breathing Abdominal: Soft, non-tender, non-distended. Bowel sounds present. Uterus: Uterine fundus firm, palpable below umbilicus Extremities: No lower extremity edema, calves non-tender bilaterally Results & Data <Papi Najera DO - Last Filed: 12/23/23 06:09> Vital Signs (Past 12 Hours) Vital Signs Temp Pulse Pulse Resp BP BP Pulse Ox 12/23/23 04:05 36.6 C 66 18 133/78 97 12/23/23 00:00 36.5 C 96 H 18 113/73 96 12/22/23 20:00 12/22/23 20:00 36.5 C 100 H 18 127/79 96 12/22/23 19:25 36.5 C 18 12/22/23 19:21 101 H 116/70 12/22/23 19:06 103 H 115/73 12/22/23 19:05 18 12/22/23 18:51 94 H 113/75 12/22/23 18:36 110 H 106/65 12/22/23 18:21 107 H 125/81 12/22/23 18:08 99 H 107/69 O2 Del Method 12/23/23 04:05 Room Air 12/23/23 00:00 Room Air 12/22/23 20:00 Room Air 12/22/23 20:00 Room Air 12/22/23 19:25 12/22/23 19:21 12/22/23 19:06 12/22/23 19:05 12/22/23 18:51 12/22/23 18:36 12/22/23 18:21 12/22/23 18:08 Supervising Physician <Kirsty Cordero DO - Last Filed: 12/23/23 08:51> Co-Signing Physician Notes Resident Physician Supervision Note: I was present with Dr. Najera during the history and exam. I discussed the case with the resident and agree with the findings and plan as documented in the note. Any exceptions or clarifications are listed here: PPD#1 doing well, desires DC home if baby is able to go. Documented By: Kirsty Cordero DO Resident Activity Tracking <DO Joaquin Bob Last Filed: 12/23/23 06:09> Resident Involvement: Resident Care Provided Care Provided: OB Delivery
[2023-12-23 06:35] LABS: Hemoglobin 12.1 g/dl (12.0-16.0)
[2023-12-23] MEDS: PRENATAL VITAMIN 1 TAB PO SCH (07:44)
[2023-12-23] MEDS: bisacodyL 5 MG TABEC PO SCH (21:08)
[2023-12-24 02:23] VITALS: O2SAT 98
--- NOTE | 2023-12-24 06:56 | Obstetrical Progress Note ---
Date of Service <Papi Najera DO - Last Filed: 12/24/23 07:10> December 24, 2023 Assessment & Plan <Papi Najera DO - Last Filed: 12/24/23 07:10> (1) Encounter for assessment: Plan 28 y/o PPD#2: Eating well, voiding well, ambulating well Vitals reviewed, WNL Pain well controlled with Motrin Routine post care - OOB, ambulation, diet progression as tolerated Will have 6 week follow up with Dr. Cordero <Gisella Huerta MD, FACOG - Last Filed: 12/24/23 07:18> (1) Encounter for assessment: Subjective <Papi Najera DO - Last Filed: 12/24/23 07:10> Ambulation: ambulating normally Voiding: no voiding problems Diet Tolerance:: regular diet Lochia:: Moderate Feeding Type:: breast feeding pain well controlled with Motrin Review of Systems -Denies fever or chills -Denies dyspnea, chest pain, or palpitations -Denies dysuria -Denies headache or changes in vision Physical Exam <Papi Najera DO - Last Filed: 12/24/23 07:10> General: Alert and oriented. No acute distress Cardiac: Regular rate and rhythm, no murmurs appreciated Respiratory: Lungs clear to auscultation bilaterally, No increased work of breathing Abdominal: Soft, non-tender, non-distended. Bowel sounds present. Uterus: Uterine fundus firm, palpable below umbilicus Extremities: No lower extremity edema, calves non-tender bilaterally Results & Data <Papi Najera DO - Last Filed: 12/24/23 07:10> Vital Signs (Past 12 Hours) Vital Signs Temp Pulse Resp BP Pulse Ox O2 Del Method 12/24/23 02:15 36.6 C 84 18 126/76 98 Room Air 12/23/23 21:15 36.5 C 88 18 128/82 97 Room Air Supervising Physician <Gisella Huerta MD, FACOG - Last Filed: 12/24/23 07:18> Co-Signing Physician Notes Resident Physician Supervision Note: I interviewed and examined the patient. Discussed with Dr. Najera and agree with findings and plan as documented in the note. Any exceptions or clarifications are listed here: stable doing well ready to go home. abd ff 2 down nt, ext nt calves. ppd #2 s/p , instructions reviewed, plan 6wk pp check. breast/rhpos /ri. Documented By: Gisella Huerta MD, FACOG Resident Activity Tracking <Papi Najera, - Last Filed: 12/24/23 07:10> Resident Involvement: Resident Care Provided Care Provided: OB Delivery
[2023-12-24 09:50] VITALS: BP 119/80; PULSE 82; RESP 16; TEMP 97.7
== END 2023-12-24 13:15 | disposition home or self-care (01) | DRG 807 ==
LOC: OPB 01:18 → 4S1 01:32 → 4E1 19:35

== ENCOUNTER 2025-02-05 17:32 | Inpatient (IN) ==
[2025-02-05] MEDS ORDERED: CALCIUM CARBONATE 500 MG CHEWABLE TAB PO PRN (18:21)
[2025-02-05] MEDS: LACTATED RINGER'S 1,000 ML IV ONE (19:08)
[2025-02-05 20:43] LABS: Hematocrit (blood only) 33.4 % (37.0-47.0); Hemoglobin 10.9 g/dl (12.0-16.0); Mean Corpuscular Hemoglobin 26.2 pg (25.0-34.0); Mean Corpuscular Volume 80.3 fL (80.0-100.0); Platelet Count 271 K/uL (130-400); RDW Standard Deviation 40.4 fL (36.4-46.3); Red Blood Count 4.16 M/uL (4.20-5.40); White Blood Count 10.25 K/ul (4.8-10.8)
--- NOTE | 2025-02-05 21:23 | History & Physical Report ---
Date of Service February 05, 2025 Assessment & Plan (1) Supervision of normal intrauterine in multigravida: Plan: Priya is a 29-year-old -1-0-2 currently at 36 weeks 1 day gestational age presented for prolonged monitoring due nonreactive NST and BPP of 6 out of 8 in clinic. After over 2 hours of monitoring NST is still not reactive although mostly reassuring. There are occasional variable decelerations and periods of minimal variability. I discussed findings with patient and her partner and I recommended that she stay the night for continued observation with plan BPP again tomorrow. Patient agreeable to plan. Will continue to monitor (2) Non-reactive NST (non-stress test): (3) Decreased movement: History of Present Illness Primary Care Provider: Jorge Ken MD Priya is a 29-year-old -1-0-2 currently at 36 weeks 1 day gestational age presents for prolonged monitoring due to nonreactive NST with BPP of 6 out of 8 in clinic. Approximately 2 to 3 hours of monitoring the tracing was noted to be mostly reassuring but not ever reactive with occasional variable decelerations. Denying labor contractions, leakage of fluid or vaginal bleeding. Noting movement. Allergies Allergy/AdvReac Type Severity Reaction Status Date / Time ragweed pollen Allergy Unknown POSITIVE Verified 01/31/25 22:40 ALLERGY TEST gluten Allergy CELIAC Verified 01/31/25 22:40 DISEASE Egg Derived AdvReac Intermediate UPSET Verified 01/31/25 22:40 STOMACH Home Medications Medication Instructions Recorded Confirmed Type albuterol sulfate 90 mcg/actuation 2 puff inhalation Q6H PRN 07/01/21 02/05/25 History aerosol inhaler Shortness Of Breath Or Wheezing prenat.vits,jenise,iaj-idmk-dwuwx 1 tab PO QPM 10/16/21 02/05/25 History buspirone 10 mg tablet 10 mg PO BID 02/11/23 02/05/25 History fluoxetine 20 mg capsule (Prozac) 50 mg PO HS 03/10/23 02/05/25 History fluticasone furoate 200 1 inh inhalation DAILY 11/17/24 02/05/25 History mcg-vilanterol 25 mcg/dose inhalation powder (Breo Ellipta) cariprazine 3 mg capsule (Vraylar) 3 mg PO DAILY 02/05/25 02/05/25 History ferrous sulfate 325 mg (65 mg 325 mg PO DAILY 02/05/25 02/05/25 History iron) tablet (iron) Patient History Medical History (Updated 02/05/25 @ 21:22 by Jose Antonio Cotto MD) Bipolar 2 disorder History of gastric ulcer Ovarian cyst removed 03-20 IBS (irritable bowel syndrome) GERD (gastroesophageal reflux disease) Anxiety and depression TMJ click Fibromyalgia Asthma uses PRN inh daily Surgical History S/P ovarian cystectomy bilateral dermoids 02/2023 History of esophagogastroduodenoscopy (EGD) 07/05/17; 01/24/20 Family History Father Autoimmune hepatitis Arthritis Eczema Hypertension Mother Hypertension Unknown Breast cancer Other No family history of adverse response to anesthesia Denies family history of Ovarian cancer Lung cancer Colorectal cancer Social History (Updated 02/05/25 @ 17:48 by Chelsea Reis RN) Smoking Status: Never smoker Second Hand Exposure: No; Do You Dip or Chew Tobacco: No; Hx Alcohol Use: No Hx Substance Use: No Preferred Language: Croatian Communication Ability: Effective Visual Impairment: No Limitations Hearing Ability: Normal Check Inspector Required: No Beliefs That Will Affect Care: None marital status: marital status details: Cody Garcia (28) [phone] Current Living Situation: Spouse and Family Current Living Situation Comment: spouse, 2 children, 5 cats, spouse to change litter current occupational status: employed current occupation: [employer] Other Information That Helps Us Care for You: No Feels Safe at Home: Yes Safety Concerns: Feels Safe At This Time Diet: gluten free Gender Identity: Female Assistive Devices: Glasses Physical Exam Genitourinary: OB Exam Monitor Tracing: + external FHT monitor used, + external uterine monitor used, + category I and + normal FHT variability Results & Data Vital Signs (Past 12 Hours) Vital Signs Temp Pulse Resp BP 02/05/25 19:10 36.7 C 18 02/05/25 19:10 93 H 02/05/25 19:10 121/80 02/05/25 17:43 36.7 C 20 02/05/25 17:40 99 H 121/66 Coding Level of Care Code 35884 INT INP/OBS CARE MIN Diagnoses Supervision of normal intrauterine in multigravida in third trimester Z34.83 Trimester: third trimester Non-reactive NST (non-stress test) O28.8 Decreased movements in third trimester, single or unspecified fetus O36.8130 Fetus number: single or unspecified fetus Trimester: third trimester CPT Codes Misx Procedure Codes - 14760 NST: 95831 NST ([id number]) (1) Supervision of normal intrauterine in multigravida Trimester: third trimester Qualified Code(s): Z34.83 - Encounter for supervision of other normal , third trimester (3) Decreased movement Fetus number: single or unspecified fetus Trimester: third trimester Qualified Code(s): O36.8130 - Decreased movements, third trimester, not applicable or unspecified
[2025-02-05] MEDS: ACETAMINOPHEN 325 MG TAB PO PRN (22:58)
--- NOTE | 2025-02-06 07:13 | Obstetrical Progress Note ---
Date of Service February 06, 2025 Assessment & Plan (1) Supervision of normal intrauterine in multigravida: (2) Non-reactive NST (non-stress test): (3) Decreased movement: Alex Powers is a 29-year-old -1-0-2 currently at 36 weeks 2 days gestational age presented for prolonged monitoring yesterday secondary to nonreactive NST and BPP of 6 out of 8 in clinic. At time of presentation to labor and delivery yesterday tracing showed normal heart rate with mostly moderate variability occasional minimal variability and occasional variable decelerations. Reviewing strip this morning shows no variable decelerations since at least 4 AM. There is noted to be normal heart rate with mostly moderate variability and occasional areas of minimal variability. No accelerations appreciated throughout reviewable strip. Will plan for BPP again this morning and reevaluate after BPP. Subjective No acute events overnight. Physical Exam Genitourinary: OB Exam Monitor Tracing: + external FHT monitor used, + external uterine monitor used, + category I and + normal FHT variability tracing reassuring but not reactive. heart rate within normal range and mostly moderate variability. There are areas of minimal variability. No decelerations. No contractions on tocometer Results & Data Vital Signs (Past 12 Hours) Vital Signs Temp Pulse Resp BP 02/06/25 03:00 18 02/06/25 03:00 36.5 C 18 02/06/25 02:52 93 H 111/67 02/05/25 22:53 91 H 02/05/25 22:53 105/59 L 02/05/25 19:10 36.7 C 18 02/05/25 19:10 93 H 02/05/25 19:10 121/80 PG Care Time/CCT Total # of Minutes Spent Total Time Spent with Patient: Total time spent is greater than 50% in coordination of care (as documented) at patient's floor/unit and/or counseling patient: Coding Level of Care Code 35525 SUB INP/OBS CARE 2/35MIN Diagnoses Supervision of normal intrauterine in multigravida in third trimester Z34.83 Trimester: third trimester Non-reactive NST (non-stress test) O28.8 Decreased movements in third trimester, single or unspecified fetus O36.8130 Fetus number: single or unspecified fetus Trimester: third trimester (1) Supervision of normal intrauterine in multigravida Trimester: third trimester Qualified Code(s): Z34.83 - Encounter for supervision of other normal , third trimester (3) Decreased movement Fetus number: single or unspecified fetus Trimester: third trimester Qualified Code(s): O36.8130 - Decreased movements, third trimester, not applicable or unspecified
--- NOTE | 2025-02-06 10:08 | Obstetrical Progress Note ---
Date of Service February 06, 2025 Assessment & Plan (1) Supervision of normal intrauterine in multigravida: (2) Non-reactive NST (non-stress test): (3) Decreased movement: Plan MFM contacted given repeat BPP this a.m. 6/8, now complete BPP score 6/10 x 2. tracing generally reassuring with minimal to moderate variability, variables were noted when she 1st presented last evening though only rarely now. However Has only rarely had an acceleration overnight, maybe 4 over 12+ hour span of monitoring, even with hydration, repositioning. Given concern for status, they recommend moving towards delivery. Given gestational age, can offer steroids but would not delay induction to complete course. Discussed this with patient and hall clerk, they are agreeable to initiating course but aware may not attain full benefit. Reviewed recommendations with patient for moving towards delivery and she is agreeable. GBS obtained, will start penicillin for status. Will start Pitocin for induction. Reviewed possibility that baby may not tolerate induction given current tracing but will have to see. Admission and Anticipated Discharge Date Admission Date: February 06, 2025 Subjective 29-year-old -1-0-2 at 36-2/7 weeks gestational age admitted overnight for prolonged monitoring after nonreactive NST and BPP 12/03. BPP this morning again was 6/8 with normal DVP. Patient notes some movement however still decreased, denies leaking of fluid or vaginal bleeding. Physical Exam Genitourinary: OB Exam Abdomen: + vertex and + estimated weight (6-7) Manual OB Exam: + cervical dilation 2 cm, + cervical effacement 50% and + station -2 OB Exam Monitor Tracing: + external FHT monitor used, + external uterine monitor used (irreg) and + category II (145-150/min-mod/rare accel, rare variable) Results & Data Vital Signs (Past 12 Hours) Vital Signs Temp Pulse Resp BP 02/06/25 10:00 18 02/06/25 10:00 18 02/06/25 07:15 86 101/60 02/06/25 03:00 18 02/06/25 03:00 97.7 F 18 02/06/25 02:52 93 H 111/67 02/05/25 22:53 91 H 02/05/25 22:53 105/59 L PG Care Time/CCT Total # of Minutes Spent Total Time Spent with Patient: Total time spent is greater than 50% in coordination of care (as documented) at patient's floor/unit and/or counseling patient: Coding Level of Care Code None Diagnoses Supervision of normal intrauterine in multigravida in third trimester Z34.83 Trimester: third trimester Non-reactive NST (non-stress test) O28.8 Decreased movements in third trimester, single or unspecified fetus O36.8130 Fetus number: single or unspecified fetus Trimester: third trimester (1) Supervision of normal intrauterine in multigravida Trimester: third trimester Qualified Code(s): Z34.83 - Encounter for supervision of other normal , third trimester (3) Decreased movement Fetus number: single or unspecified fetus Trimester: third trimester Qualified Code(s): O36.8130 - Decreased movements, third trimester, not applicable or unspecified
[2025-02-06] MEDS ORDERED: LIDOCAINE 1% LOCAL 20 ML VIAL INFIL PRN (10:27)
[2025-02-06] MEDS: LACTATED RINGER'S 1,000 ML IV PRN (10:56)
[2025-02-06] MEDS: PENICILLIN GK 6 MU in DEXTROSE 5% 250 ML IV STA (11:01)
[2025-02-06] MEDS: BETAMETH SOD PHOS/ACETATE IA 6 MG/ML IM STA (11:03)
[2025-02-06] MEDS: OXYTOCIN 30 UNITS/NSS 30 UNITS/500 ML BAG IV PRN ×2 (11:16→18:36)
--- NOTE | 2025-02-06 12:46 | Ultrasound Report ---
US OB BPP wo NST single CLINICAL HISTORY: Nonreactive NST, BPP 6 yesterday COMPARISON STUDY: 02/05/2025 FINDINGS: There is a single intrauterine gestation with cephalic presentation. The placenta is anteri or. heart rate is 144 bpm. Amniotic fluid index is 12. Biophysical profile is 6 out of 8. IMPRESSION: Biophysical profile is 6 out of 8. ACT 112: Negative or not required by law. Electronically signed by: Eugene Pringle M.D. 02/06/2025 12:44 PM
[2025-02-06] MEDS ORDERED: SODIUM CHLORIDE 0.9% PF INJ 10 ML VIAL ONE (13:05)
[2025-02-06] MEDS ORDERED: LIDOCAINE 2% MPF LOCAL 5 ML VIAL EPI PRN (13:17)
[2025-02-06] MEDS ORDERED: SODIUM CHLORIDE 0.9% PF INJ 10 ML VIAL EPI PRN (13:17)
[2025-02-06] MEDS ORDERED: BUPIVACAINE 0.25% PF 30 ML VIAL EPI PRN (13:17)
[2025-02-06] MEDS ORDERED: ROPIVACAINE 0.5% PF 5 MG/ML 20 ML VIAL EPI PRN (13:17)
[2025-02-06] MEDS ORDERED: NALBUPHINE HCL INJ 10 MG/ML AMP IV PRN (13:17)
[2025-02-06] MEDS ORDERED: NALOXONE HCL 1 MG in SODIUM CHLORIDE 0.9% 1,000 ML IV PRN (13:17)
[2025-02-06] MEDS ORDERED: fentANYL 2 MCG/ML BUPIVacaine 0.125%-NSS 100ML BAG EPI PRN (13:17)
[2025-02-06] MEDS ORDERED: NALOXONE HCL 0.4 MG/1 ML VIAL/CARP IV PRN (13:17)
[2025-02-06] MEDS ORDERED: diphenhydrAMINE 50 MG/ML VIAL IV PRN (13:17)
--- NOTE | 2025-02-06 13:17 | Anesthesiology Consultation ---
Date of Service February 06, 2025 Assessment & Plan (1) Encounter for pre-operative examination: Chart Review Chart Review: Patient NOT seen in Pre Admission Testing and Acceptable Risk for Labor Epidural Consults Requested none History Height/Weight Height: 5 ft 3 in Weight: 104.417 kg Allergies Allergy/AdvReac Type Severity Reaction Status Date / Time ragweed pollen Allergy Unknown POSITIVE Verified 01/31/25 22:40 ALLERGY TEST gluten Allergy CELIAC Verified 01/31/25 22:40 DISEASE Egg Derived AdvReac Intermediate UPSET Verified 01/31/25 22:40 STOMACH Medications Home Medications Medication Instructions Recorded Confirmed Last Taken albuterol sulfate 90 mcg/actuation 2 puff inhalation Q6H PRN 07/01/21 02/05/25 02/05/25 07:30 aerosol inhaler Shortness Of Breath Or Wheezing prenat.vits,jenise,jfy-cjam-gtlki 1 tab PO QPM 10/16/21 02/05/25 02/03/25 21:00 buspirone 10 mg tablet 10 mg PO BID 02/11/23 02/05/25 02/04/25 20:00 fluoxetine 20 mg capsule (Prozac) 50 mg PO HS 03/10/23 02/05/25 02/04/25 21:00 fluticasone furoate 200 1 inh inhalation DAILY 11/17/24 02/05/25 02/03/25 mcg-vilanterol 25 mcg/dose inhalation powder (Breo Ellipta) cariprazine 3 mg capsule (Vraylar) 3 mg PO DAILY 02/05/25 02/05/25 02/04/25 21:00 ferrous sulfate 325 mg (65 mg 325 mg PO DAILY 02/05/25 02/05/25 02/03/25 21:00 iron) tablet (iron) Active Medications Generic Name Dose Route Start Last Admin Trade Name Freq PRN Reason Stop Dose Admin Acetaminophen 650 mg 02/05/25 18:21 02/05/25 22:58 Acetaminophen 325 Mg Tab PO 03/07/25 18:20 650 mg Q4H PRN Administration Pain or Fever Lactated Ringer's 1,000 mls @ 125 mls/hr 02/06/25 10:27 02/06/25 13:07 Lr IV 02/08/25 10:26 999 mls/hr .Q8H PRN Infusion L&D Protocol Protocol Oxytocin 30 units in 500 mls @ 5 mls/hr 02/06/25 10:27 02/06/25 12:16 Pitocin 30 Units/Nss IV 02/08/25 10:26 0.3 units/hr .Q24H PRN 5 mls/hr Labor Induction/Augmentation Titration Protocol 0.3 UNITS/HR Past Medical History Medical History Bipolar 2 disorder History of gastric ulcer Ovarian cyst removed 03-20 IBS (irritable bowel syndrome) GERD (gastroesophageal reflux disease) Anxiety and depression TMJ click Fibromyalgia Asthma uses PRN inh daily Past Family History Family History Father Autoimmune hepatitis Arthritis Eczema Hypertension Mother Hypertension Unknown Breast cancer Other No family history of adverse response to anesthesia Denies family history of Ovarian cancer Lung cancer Colorectal cancer Past Surgical History Surgical History S/P ovarian cystectomy bilateral dermoids 02/2023 History of esophagogastroduodenoscopy (EGD) 07/05/17; 01/24/20 Social History Smoking Status: Never smoker Do You Dip or Chew Tobacco: No Hx Alcohol Use: No alcohol intake frequency: holidays/special occasions only Hx Substance Use: No substance use type: does not use Physical Exam Vital Signs Last Vital Signs Temp 98.2 F 02/06/25 11:10 Pulse 91 H 02/06/25 12:12 Resp 18 02/06/25 12:30 BP 109/63 02/06/25 12:12 Testing Laboratory Results 02/05/25 20:26 Blood Type A Negative 02/05/25 20:26 Antibody Screen POSITIVE A 02/05/25 20:26
[2025-02-06] MEDS: BUPIVACAINE 0.25% PF 30 ML VIAL ONE (13:45)
[2025-02-06] MEDS: fentANYL 2 MCG/ML BUPIVacaine 0.125%-NSS 100ML BAG ONE (13:47)
[2025-02-06] MEDS: LIDOCAINE 2%/EPINEPHRINE 1:200,000 20 ML PF ONE (14:05)
[2025-02-06] MEDS: BUPIVACAINE 0.25% PF 30 ML VIAL EPI STA (14:05)
[2025-02-06] MEDS: LIDOCAINE 2%/EPINEPHRINE 1:200,000 20 ML PF EPI STA (14:06)
[2025-02-06] MEDS: SODIUM CHLORIDE 0.9% PF INJ 10 ML VIAL EPI STA (14:06)
[2025-02-06] MEDS: PENICILLIN GK 3 MU in DEXTROSE 5% 100 ML IV PRN (14:55)
--- NOTE | 2025-02-06 15:21 | Labor Progress Brief Note ---
Date of Service February 06, 2025 Subjective comfortable w/ epidural Assessment & Plan (1) Supervision of normal intrauterine in multigravida: Trimester: third trimester Qualified Code(s): Z34.83 - Encounter for supervision of other normal , third trimester (2) Non-reactive NST (non-stress test): (3) Decreased movement: Fetus number: single or unspecified fetus Trimester: third trimester Qualified Code(s): O36.8130 - Decreased movements, third trimester, not applicable or unspecified Plan 29 yo at 36 2/7 wga with nrfht, bpp 6/10 x 2, recommended for iol by mfm VSS Fetus cat 1 currently, usually ranging cat 1-2 but generally reassuring Labor - s/p bmz. pit at 11, now s/p arom. Continue induction GBS P, pcn running epidural in place Admission and Anticipated Discharge Date Admission Date: February 06, 2025 Physical Exam Genitourinary: Manual OB Exam: + cervical dilation 3 cm, + cervical effacement 50%, + station -2 and + amniotic fluid (arom clear) OB Exam Monitor Tracing: + external FHT monitor used, + external uterine monitor used (q3-4) and + category I (140/min-mod/rare accel/no decels) Results & Data Vital Signs (Past 12 Hours) Vital Signs Temp Pulse Resp BP Pulse Ox 02/06/25 15:16 98 H 100 02/06/25 15:11 100 H 100 02/06/25 15:10 91 H 109/67 02/06/25 15:09 85 114/74 02/06/25 15:06 85 100 02/06/25 15:01 97 H 100 02/06/25 14:56 88 98 02/06/25 14:51 84 96 02/06/25 14:46 86 97 02/06/25 14:41 81 95 02/06/25 14:39 82 94 02/06/25 14:38 82 117/71 02/06/25 14:36 90 95 02/06/25 14:31 92 H 96 02/06/25 14:26 80 97 02/06/25 14:23 89 115/65 02/06/25 14:21 87 99 02/06/25 14:16 93 H 99 02/06/25 14:11 99 H 100 02/06/25 14:08 89 109/70 02/06/25 14:06 89 99 02/06/25 14:04 90 121/65 02/06/25 14:01 96 H 99 02/06/25 13:57 94 H 110/57 L 02/06/25 13:56 98 H 98 02/06/25 13:54 91 H 114/66 02/06/25 13:52 96 H 110/58 L 02/06/25 13:51 93 H 98 02/06/25 13:50 102 H 115/62 02/06/25 13:49 91 H 122/62 02/06/25 13:46 106 H 98/53 L 98 02/06/25 13:45 88 101/55 L 02/06/25 13:43 112 H 149/65 H 02/06/25 13:41 98 H 100 02/06/25 13:40 103 H 127/67 02/06/25 13:38 102 H 119/65 02/06/25 13:37 110 H 122/63 02/06/25 13:36 112 H 100 02/06/25 13:35 113 H 114/71 02/06/25 13:34 104 H 89 L 02/06/25 13:31 101 H 119/69 100 02/06/25 13:29 100 H 99/66 L 02/06/25 13:26 97 02/06/25 13:26 106 H 02/06/25 13:26 98 H 93/61 L 02/06/25 13:22 104 H 87/51 L 02/06/25 13:21 99 02/06/25 13:21 94 H 02/06/25 13:21 101 H 93/54 L 02/06/25 13:00 16 02/06/25 13:00 16 02/06/25 12:30 18 02/06/25 12:30 18 02/06/25 12:12 91 H 109/63 02/06/25 12:00 16 02/06/25 12:00 16 02/06/25 11:10 18 02/06/25 11:10 98.2 F 102 H 18 111/65 02/06/25 10:00 18 02/06/25 10:00 18 02/06/25 07:15 86 101/60 Coding Level of Care Code None Diagnoses [facility] Z[facility].83 Trimester: third trimester Non-reactive NST (non-stress test) O28.8 Decreased movements in third trimester, single or unspecified fetus O36.8130 Fetus number: single or unspecified fetus Trimester: third trimester
--- NOTE | 2025-02-06 18:18 | Delivery Summary ---
Vaginal Delivery Summary Date of Service February 06, 2025 Vaginal Delivery Summary [facility] PREOPERATIVE DIAGNOSIS: 1. Single intrauterine at 36 2/7 wga 2. Non-reassuring status 3. Rh neg POSTOPERATIVE DIAGNOSIS: 1. Single intrauterine at 36 2/7 wga 2. Non-reassuring status 3. Rh neg 4. Delivered PROCEDURE: 1. Normal spontaneous vaginal delivery. SURGEON: Staci Caraballo MD ANESTHESIA: Epidural. QUANTITATIVE BLOOD LOSS: 300 mL FLUIDS: Continuous LR. COMPLICATIONS: None. CONDITION: Stable. INDICATIONS: 29 yo at 36 2/7 wga presented for evaluation due to decreased movement yesterday afternoon. NST was NR and BPP was 6/8. Due to min-mod variability on tracing, was recommended for further monitoring and observed overnight. Tracing remained without significant accelerations and remained NR, repeat BPP was 6/8. Case was discussed with maternal medicine who recommended delivery. GBS was obtained and pencillin started for unknown status. Betamethasone started. Induction was begun with oxytocin. She received an epidural for pain control. She underwent arom and progressed to complete and desired to push FINDINGS: A viable female , weight pending with Apgars of 6 and 8 at 1 and 5 minutes respectively. Cord appeared subjectively hypercoiled SPECIMEN: Cord blood, cord gases, placenta OPERATIVE REPORT: The patient progressed to 10 cm, 100% effaced and +2 station, pushed over intact perineum with anesthesia to deliver a viable female infant, weight and Apgars as above. Head of delivered in JANIE position. Nuchal cord was reduced. Body and shoulders were delivered without difficulty at which point body cord and additional nuchal cord were noted and reduced. was delivered to maternal abdomen and nursing staff. Delayed cord clamping was initiated then cord was clamped and cut. Cord segment and blood were obtained. Placenta delivered spontaneously intact with 3-vessel cord. IV oxytocin and fundal massage were given for excellent hemostasis. Vagina, cervix, perineum, and placenta were inspected. No lacerations were noted. Sponge and needle counts correct x2. No sponges were left behind. Mother and stable in immediate period. [facility] [place] Vaginal Delivery Charge Vaginal Delivery Codes: 97428 global code for the antepartum, delivery, and post- Delivery Type Details: [facility]
[2025-02-06 18:29] LABS: Base Excess Cord Venous Blood -5.0 mEq/L (-7.7-1.9); Cord Venous Blood PO2 23 mmHg (14.1-43.3); O2 Saturation Cord Venous Bld < 60.0 % (<68)
[2025-02-06] MEDS ORDERED: BENZOCAINE 20% SPRY 85 APPLN/85 GM CAN EXT PRN (18:39)
[2025-02-06] MEDS ORDERED: ALBUTEROL HFA 8 GM INHALER INH PRN (18:39)
[2025-02-06] MEDS ORDERED: OXYTOCIN 30 UNITS/NSS 30 UNITS/500 ML BAG IV PRN (18:39)
[2025-02-06] MEDS ORDERED: HYDROCORTISONE ACETATE 25 MG SUPP PR PRN (18:39)
[2025-02-06] MEDS ORDERED: DIPHTHER/TETAN/PERTUS Vaccine (Tdap, Adol/Adult) 0.5mL IM ONE (18:39)
--- NOTE | 2025-02-06 19:02 | Anesthesia Procedure Note ---
Date of Service February 06, 2025 Anesthesia Post Epidural Note Vital Signs Vital Signs: Temp Pulse Resp BP Pulse Ox 36.5 C 96 H 18 106/74 100 02/06/25 17:02 02/06/25 18:53 02/06/25 18:10 02/06/25 18:53 02/06/25 18:12 Pain Intensity Abdomen: Pain Intensity: 0 Notes Mental Status: alert / awake / arousable and participated in evaluation Patient Amnestic to Procedure: No Nausea / Vomiting: adequately controlled Pain: adequately controlled Airway Patency, RR, SpO2: stable & adequate BP & HR: stable & adequate Hydration State: stable & adequate Neuraxial Anesthesia: was administered and sensory block resolved Anesthetic Complications: no major complications apparent Epidural: Removed without complications and With tip intact
[2025-02-06] MEDS: IBUPROFEN 600 MG TAB PO PRN (19:13)
[2025-02-06] MEDS: busPIRone 5 MG TAB PO SCH (20:06)
[2025-02-06] MEDS: DOCUSATE SODIUM 100 MG CAP PO SCH (20:08)
--- NOTE | 2025-02-06 20:45 | Anesthesiology Progress Note ---
Date of Service February 06, 2025 Anesthesia Post Procedure Vital Signs Vital Signs: Temp Pulse Pulse Resp BP BP Pulse Ox 02/06/25 20:35 36.7 C 80 18 108/74 99 02/06/25 20:13 97 H 93 02/06/25 20:11 94 H 100 02/06/25 20:08 100 H 106/65 02/06/25 20:06 91 H 100 02/06/25 20:01 105 H 100 02/06/25 19:56 100 H 100 02/06/25 19:53 97 H 103/58 L 02/06/25 19:51 95 H 100 02/06/25 19:46 90 100 02/06/25 19:41 104 H 96 02/06/25 19:40 87 92 02/06/25 19:38 82 115/66 02/06/25 19:36 94 H 98 02/06/25 19:34 88 106/55 L 02/06/25 19:08 89 103/71 02/06/25 18:55 36.7 C 96 H 18 106/74 02/06/25 18:53 96 H 106/74 02/06/25 18:40 36.7 C 74 18 101/62 02/06/25 18:38 74 101/62 02/06/25 18:25 36.6 C 84 16 99/54 L 02/06/25 18:23 84 99/54 L 02/06/25 18:12 80 100 02/06/25 18:10 85 18 106/55 L 100 02/06/25 18:09 90 104/55 L 02/06/25 18:08 85 106/55 L 02/06/25 18:07 92 H 100 02/06/25 18:02 83 100 02/06/25 17:57 100 02/06/25 17:57 90 02/06/25 17:57 89 92 02/06/25 17:53 101 H 118/71 02/06/25 17:52 88 100 02/06/25 17:47 117 H 100 02/06/25 17:42 115 H 100 02/06/25 17:38 85 119/70 02/06/25 17:37 89 100 02/06/25 17:32 94 H 100 02/06/25 17:30 20 02/06/25 17:30 20 02/06/25 17:27 80 100 02/06/25 17:22 86 99 02/06/25 17:17 87 100 02/06/25 17:12 84 100 02/06/25 17:08 96 H 102/55 L 02/06/25 17:07 77 100 02/06/25 17:02 16 02/06/25 17:02 36.5 C 16 02/06/25 17:01 111 H 100 02/06/25 16:58 105 H 91 02/06/25 16:56 115 H 100 02/06/25 16:53 104 H 125/70 02/06/25 16:51 102 H 100 02/06/25 16:46 108 H 100 02/06/25 16:41 116 H 100 02/06/25 16:40 106 H 89 L 02/06/25 16:38 86 100/62 02/06/25 16:36 85 97 02/06/25 16:34 84 94 02/06/25 16:31 85 95 02/06/25 16:30 18 02/06/25 16:30 18 02/06/25 16:26 85 97 02/06/25 16:25 80 100/61 02/06/25 16:21 81 97 02/06/25 16:16 87 100 02/06/25 16:11 94 H 100 02/06/25 16:08 87 105/63 02/06/25 16:06 78 100 02/06/25 16:05 96 H 94 02/06/25 16:01 91 H 100 02/06/25 16:00 18 02/06/25 16:00 18 02/06/25 15:56 99 H 100 02/06/25 15:53 103 H 102/64 02/06/25 15:51 92 H 100 02/06/25 15:46 92 H 100 02/06/25 15:45 85 101/65 02/06/25 15:41 100 02/06/25 15:41 82 02/06/25 15:41 90 87 L 02/06/25 15:38 89 101/65 02/06/25 15:37 18 02/06/25 15:37 36.9 C 18 02/06/25 15:36 101 H 98 02/06/25 15:31 81 100 02/06/25 15:30 16 02/06/25 15:30 16 02/06/25 15:26 81 100 02/06/25 15:24 73 109/66 02/06/25 15:21 106 H 100 02/06/25 15:16 98 H 100 02/06/25 15:11 100 H 100 02/06/25 15:10 91 H 109/67 02/06/25 15:09 85 114/74 02/06/25 15:06 85 100 02/06/25 15:01 97 H 100 02/06/25 14:56 88 98 02/06/25 14:51 84 96 02/06/25 14:46 86 97 02/06/25 14:41 81 95 02/06/25 14:39 82 94 02/06/25 14:38 82 117/71 02/06/25 14:36 90 95 02/06/25 14:31 92 H 96 02/06/25 14:26 80 97 02/06/25 14:23 89 115/65 02/06/25 14:21 87 99 02/06/25 14:16 93 H 99 02/06/25 14:11 99 H 100 02/06/25 14:08 89 109/70 02/06/25 14:06 89 99 02/06/25 14:04 90 121/65 02/06/25 14:01 96 H 99 02/06/25 13:57 94 H 110/57 L 02/06/25 13:56 98 H 98 02/06/25 13:54 91 H 114/66 02/06/25 13:52 96 H 110/58 L 02/06/25 13:51 93 H 98 02/06/25 13:50 102 H 115/62 02/06/25 13:49 91 H 122/62 02/06/25 13:46 106 H 98/53 L 98 02/06/25 13:45 88 101/55 L 02/06/25 13:43 112 H 149/65 H 02/06/25 13:41 98 H 100 02/06/25 13:40 103 H 127/67 02/06/25 13:38 102 H 119/65 02/06/25 13:37 110 H 122/63 02/06/25 13:36 112 H 100 02/06/25 13:35 113 H 114/71 02/06/25 13:34 104 H 89 L 02/06/25 13:31 101 H 119/69 100 02/06/25 13:29 100 H 99/66 L 02/06/25 13:26 97 02/06/25 13:26 106 H 02/06/25 13:26 98 H 93/61 L 02/06/25 13:22 104 H 87/51 L 02/06/25 13:21 99 02/06/25 13:21 94 H 02/06/25 13:21 101 H 93/54 L 02/06/25 13:00 16 02/06/25 13:00 16 02/06/25 12:30 18 02/06/25 12:30 18 02/06/25 12:12 91 H 109/63 02/06/25 12:00 16 02/06/25 12:00 16 02/06/25 11:10 18 02/06/25 11:10 36.8 C 102 H 18 111/65 02/06/25 10:00 18 02/06/25 10:00 18 02/06/25 07:15 86 101/60 02/06/25 03:00 18 02/06/25 03:00 36.5 C 18 02/06/25 02:52 93 H 111/67 02/05/25 22:53 91 H 02/05/25 22:53 105/59 L O2 Del Method 02/06/25 20:35 Room Air 02/06/25 20:13 02/06/25 20:11 02/06/25 20:08 02/06/25 20:06 02/06/25 20:01 02/06/25 19:56 02/06/25 19:53 02/06/25 19:51 02/06/25 19:46 02/06/25 19:41 02/06/25 19:40 02/06/25 19:38 02/06/25 19:36 02/06/25 19:34 02/06/25 19:08 02/06/25 18:55 02/06/25 18:53 02/06/25 18:40 02/06/25 18:38 02/06/25 18:25 02/06/25 18:23 02/06/25 18:12 02/06/25 18:10 02/06/25 18:09 02/06/25 18:08 02/06/25 18:07 02/06/25 18:02 02/06/25 17:57 02/06/25 17:57 02/06/25 17:57 02/06/25 17:53 02/06/25 17:52 02/06/25 17:47 02/06/25 17:42 02/06/25 17:38 02/06/25 17:37 02/06/25 17:32 02/06/25 17:30 02/06/25 17:30 02/06/25 17:27 02/06/25 17:22 02/06/25 17:17 02/06/25 17:12 02/06/25 17:08 02/06/25 17:07 02/06/25 17:02 02/06/25 17:02 02/06/25 17:01 02/06/25 16:58 02/06/25 16:56 02/06/25 16:53 02/06/25 16:51 02/06/25 16:46 02/06/25 16:41 02/06/25 16:40 02/06/25 16:38 02/06/25 16:36 02/06/25 16:34 02/06/25 16:31 02/06/25 16:30 02/06/25 16:30 02/06/25 16:26 02/06/25 16:25 02/06/25 16:21 02/06/25 16:16 02/06/25 16:11 02/06/25 16:08 02/06/25 16:06 02/06/25 16:05 02/06/25 16:01 02/06/25 16:00 02/06/25 16:00 02/06/25 15:56 02/06/25 15:53 02/06/25 15:51 02/06/25 15:46 02/06/25 15:45 02/06/25 15:41 02/06/25 15:41 02/06/25 15:41 02/06/25 15:38 02/06/25 15:37 02/06/25 15:37 02/06/25 15:36 02/06/25 15:31 02/06/25 15:30 02/06/25 15:30 02/06/25 15:26 02/06/25 15:24 02/06/25 15:21 02/06/25 15:16 02/06/25 15:11 02/06/25 15:10 02/06/25 15:09 02/06/25 15:06 02/06/25 15:01 02/06/25 14:56 02/06/25 14:51 02/06/25 14:46 02/06/25 14:41 02/06/25 14:39 02/06/25 14:38 02/06/25 14:36 02/06/25 14:31 02/06/25 14:26 02/06/25 14:23 02/06/25 14:21 02/06/25 14:16 02/06/25 14:11 02/06/25 14:08 02/06/25 14:06 02/06/25 14:04 02/06/25 14:01 02/06/25 13:57 02/06/25 13:56 02/06/25 13:54 02/06/25 13:52 02/06/25 13:51 02/06/25 13:50 02/06/25 13:49 02/06/25 13:46 02/06/25 13:45 02/06/25 13:43 02/06/25 13:41 02/06/25 13:40 02/06/25 13:38 02/06/25 13:37 02/06/25 13:36 02/06/25 13:35 02/06/25 13:34 02/06/25 13:31 02/06/25 13:29 02/06/25 13:26 02/06/25 13:26 02/06/25 13:26 02/06/25 13:22 02/06/25 13:21 02/06/25 13:21 02/06/25 13:21 02/06/25 13:00 02/06/25 13:00 02/06/25 12:30 02/06/25 12:30 02/06/25 12:12 02/06/25 12:00 02/06/25 12:00 02/06/25 11:10 02/06/25 11:10 02/06/25 10:00 02/06/25 10:00 02/06/25 07:15 02/06/25 03:00 02/06/25 03:00 02/06/25 02:52 02/05/25 22:53 02/05/25 22:53 Pain Intensity Abdomen: Pain Intensity: 0
[2025-02-06] MEDS: ACETAMINOPHEN 325 MG TAB PO PRN (23:32)
--- NOTE | 2025-02-07 06:17 | Obstetrical Progress Note ---
Date of Service February 07, 2025 Assessment & Plan (1) care and examination: Plan: Patient is post status delivery at 36 weeks 1 day, day 1. Patient is currently stable. Will continue to monitor. Admission and Anticipated Discharge Date Admission Date: February 06, 2025 Supervising Physician Co-Signing Physician Notes Resident Physician Supervision Note: I interviewed and examined the patient. Discussed with Dr. Bowden and agree with findings and plan as documented in the note. Any exceptions or clarifications are listed here: PP1 s/p , doing well. Baby improved, desires dc to nesting at 24hrs Documented By: Staci Caraballo MD Subjective 29 yo post- day 1 s/p [] Ambulation: ambulating normally Voiding: no voiding problems Passing Gas:: Yes Diet Tolerance:: regular diet Feeding Type:: Baby is currently at the nursery being monitored. Current Pain Level:Some crampy pain. 1/10 pain. Resting comfortably this AM in NAD. Denies fevers/chills, MARADIAGA, CP/palp, SOB/cough/wheezing, N/V, LE pain, breast pain/dschrg, UTI Sx. Review of Systems Review of Systems: as per subjective HPI Physical Exam Constitutional: WD/WN, vitals as above Respiratory: normal respiratory effort, lungs clear to auscultation Cardiovascular: Rate/Rhythm: regular rate and regular rhythm Heart Sounds: normal S1 and normal S2; no murmur Extremities: + edema (trace-1+ ); no calf tenderness Gastrointestinal (Abdomen): Percussion/Palpation: + abdomen tender (in RLQ and LLQ) Skin: no rashes, warm and dry Psychiatric: Eye Contact: good eye contact Speech: normal rate/rhythm/volume of speech Thought Process: linear/logical thought process Genitourinary: uterus is firm and @ level of umbilicus Results & Data Vital Signs (Past 12 Hours) Vital Signs Temp Pulse Pulse Resp BP BP Pulse Ox 02/07/25 04:00 36.7 C 95 H 18 114/77 99 02/06/25 23:30 36.8 C 78 20 124/71 99 02/06/25 20:35 36.7 C 80 18 108/74 99 02/06/25 20:13 97 H 93 02/06/25 20:11 94 H 100 02/06/25 20:08 100 H 106/65 02/06/25 20:06 91 H 100 02/06/25 20:01 105 H 100 02/06/25 19:56 100 H 100 02/06/25 19:53 97 H 103/58 L 02/06/25 19:51 95 H 100 02/06/25 19:46 90 100 02/06/25 19:41 104 H 96 02/06/25 19:40 87 92 02/06/25 19:38 82 115/66 02/06/25 19:36 94 H 98 02/06/25 19:34 88 106/55 L 02/06/25 19:08 89 103/71 02/06/25 18:55 36.7 C 96 H 18 106/74 02/06/25 18:53 96 H 106/74 02/06/25 18:40 36.7 C 74 18 101/62 02/06/25 18:38 74 101/62 02/06/25 18:25 36.6 C 84 16 99/54 L 02/06/25 18:23 84 99/54 L O2 Del Method 02/07/25 04:00 Room Air 02/06/25 23:30 Room Air 02/06/25 20:35 Room Air 02/06/25 20:13 02/06/25 20:11 02/06/25 20:08 02/06/25 20:06 02/06/25 20:01 02/06/25 19:56 02/06/25 19:53 02/06/25 19:51 02/06/25 19:46 02/06/25 19:41 02/06/25 19:40 02/06/25 19:38 02/06/25 19:36 02/06/25 19:34 02/06/25 19:08 02/06/25 18:55 02/06/25 18:53 02/06/25 18:40 02/06/25 18:38 02/06/25 18:25 02/06/25 18:23 Laboratory Results Lab Results 02/05/25 02/06/25 02/06/25 Range/Units 20:26 17:50 17:50 WBC 10.25 (4.8-10.8) K/ul RBC 4.16 L (4.20-5.40) M/uL Hgb 10.9 L (12.0-16.0) g/dl Hct 33.4 L (37.0-47.0) % MCV 80.3 (80.0-100.0) fL MCH 26.2 (25.0-34.0) pg MCHC 32.6 (32.0-36.0) g/dL RDW Std Deviation 40.4 (36.4-46.3) fL RDW Coeff of Roberth 14.0 (11.5-14.5) % Plt Count 271 (130-400) K/uL MPV 10.3 (9.4-12.4) fL Cord ABG pH Cancelled Cord ABG pCO2 Cancelled Cord ABG pO2 Cancelled Cord ABG HCO3 Cancelled Cord ABG Base Excess Cancelled Cord ABG O2 Sat Cancelled Cord VBG pH 7.31 (7.20-7.44) Cord VBG pCO2 42 (30.4-57.2) mmHg Cord VBG pO2 23 (14.1-43.3) mmHg Cord VBG HCO3 21 (18.4-26.8) mmol/L Cord VBG Base Excess -5.0 (-7.7-1.9) mEq/L Cord VBG O2 Sat < 60.0 (<68) % Barometric Pressure Cancelled Blood Gas Comments Cancelled KOHLER Treponema pallidum Ab Negative (Negative) Blood Type A Negative Antibody Screen POSITIVE A Antibody Identification Anti-D due to RhIg Antibody ID Comment
[2025-02-07] MEDS: PRENATAL VITAMIN 1 TAB PO SCH (08:39)
[2025-02-07] MEDS: CARIPRAZINE HCL 3 MG CAP PO SCH (08:39)
[2025-02-07] MEDS: FLUTICASONE/VILANTEROL 200/25MCG 14 PUFFS/INHALER INH SCH (08:41)
[2025-02-07] MEDS ORDERED: BETAMETH SOD PHOS/ACETATE IA 6 MG/ML IM SCH (10:30)
[2025-02-07 16:16] VITALS: TEMP 98.2
--- NOTE | 2025-02-08 07:15 | Obstetrical Progress Note ---
Date of Service February 08, 2025 Assessment & Plan (1) care and examination: Plan: Patient is post status delivery at 36 weeks 1 day, day 2. Patient is currently stable. Will discharge today. Admission and Anticipated Discharge Date Admission Date: February 06, 2025 Supervising Physician Co-Signing Physician Notes Resident Physician Supervision Note: I interviewed and examined the patient. Discussed with Dr. Goldman and agree with findings and plan as documented in the note. Any exceptions or clarifications are listed here: [ ] Documented By: Joi Hughes MD, FACOG Subjective 29 yo post- day 2 s/p [] Ambulation: ambulating normally Voiding: no voiding problems Passing Gas:: Yes Diet Tolerance:: regular diet Feeding Type:: Breast feeding Current Pain Level: Crampy pain that has improved. 2/10 pain. Resting comfortably this AM in NAD. Denies fevers/chills, MARADIAGA, CP/palp, SOB/cough/wheezing, N/V, LE pain, breast pain/dschrg, UTI Sx. Review of Systems Review of Systems: as per subjective HPI Physical Exam Constitutional: WD/WN, vitals as above Respiratory: normal respiratory effort, lungs clear to auscultation Cardiovascular: Rate/Rhythm: regular rate and regular rhythm Heart Sounds: normal S1 and normal S2; no murmur Extremities: + edema (trace-1+ ); no calf tenderness Gastrointestinal (Abdomen): Percussion/Palpation: abdomen soft; abdomen nontender Skin: no rashes, warm and dry Psychiatric: Eye Contact: good eye contact Speech: normal rate/rhythm/volume of speech Thought Process: linear/logical thought process Genitourinary: uterus is firm and @ level of umbilicus Results & Data Vital Signs (Past 12 Hours) Vital Signs Temp Pulse Resp BP Pulse Ox O2 Del Method 02/08/25 02:00 36.8 C 90 16 111/78 98 Room Air 02/07/25 20:00 36.8 C 95 H 18 111/65 100 Room Air Laboratory Results Lab Results 02/05/25 02/06/25 02/06/25 Range/Units 20:26 17:50 17:50 WBC 10.25 (4.8-10.8) K/ul RBC 4.16 L (4.20-5.40) M/uL Hgb 10.9 L (12.0-16.0) g/dl Hct 33.4 L (37.0-47.0) % MCV 80.3 (80.0-100.0) fL MCH 26.2 (25.0-34.0) pg MCHC 32.6 (32.0-36.0) g/dL RDW Std Deviation 40.4 (36.4-46.3) fL RDW Coeff of Roberth 14.0 (11.5-14.5) % Plt Count 271 (130-400) K/uL MPV 10.3 (9.4-12.4) fL Cord ABG pH Cancelled Cord ABG pCO2 Cancelled Cord ABG pO2 Cancelled Cord ABG HCO3 Cancelled Cord ABG Base Excess Cancelled Cord ABG O2 Sat Cancelled Cord VBG pH 7.31 (7.20-7.44) Cord VBG pCO2 42 (30.4-57.2) mmHg Cord VBG pO2 23 (14.1-43.3) mmHg Cord VBG HCO3 21 (18.4-26.8) mmol/L Cord VBG Base Excess -5.0 (-7.7-1.9) mEq/L Cord VBG O2 Sat < 60.0 (<68) % Barometric Pressure Cancelled Blood Gas Comments Cancelled KOHLER Treponema pallidum Ab Negative (Negative) Blood Type A Negative Antibody Screen POSITIVE A Antibody Identification Anti-D due to RhIg Antibody ID Comment Screen (Negative) 02/07/25 Range/Units 06:05 WBC (4.8-10.8) K/ul RBC (4.20-5.40) M/uL Hgb (12.0-16.0) g/dl Hct (37.0-47.0) % MCV (80.0-100.0) fL MCH (25.0-34.0) pg MCHC (32.0-36.0) g/dL RDW Std Deviation (36.4-46.3) fL RDW Coeff of Roberth (11.5-14.5) % Plt Count (130-400) K/uL MPV (9.4-12.4) fL Cord ABG pH Cord ABG pCO2 Cord ABG pO2 Cord ABG HCO3 Cord ABG Base Excess Cord ABG O2 Sat Cord VBG pH (7.20-7.44) Cord VBG pCO2 (30.4-57.2) mmHg Cord VBG pO2 (14.1-43.3) mmHg Cord VBG HCO3 (18.4-26.8) mmol/L Cord VBG Base Excess (-7.7-1.9) mEq/L Cord VBG O2 Sat (<68) % Barometric Pressure Blood Gas Comments Treponema pallidum Ab (Negative) Blood Type A Negative Antibody Screen Cancelled Antibody Identification Antibody ID Comment Screen Negative (Negative)
[2025-02-08 08:07] VITALS: PULSE 84; RESP 18
[2025-02-08 08:10] VITALS: BP 111/77; O2SAT 99
== END 2025-02-08 12:15 | disposition home or self-care (01) | DRG 805 ==
LOC: 4S1 17:32 → OPB 17:32 → 4S1 17:33 → 4E2 02-06 20:44